=== PATIENT | male | born 1940 | race Hispanic/Latino ===

== ENCOUNTER 2018-04-13 19:33 | Inpatient (IN) | payer OTHER ==
--- OUTSIDE RECORDS SUMMARY | 2018-04-13 19:36 | XMS REPORT ---
:1940 Author Organization [facility] Address [address] [place] [address] Dr. Mata [address] [place] [id number] Care Team Providers Name Role Phone Antolin Chantale Unavailable Unavailable Calderon Mcrae Unavailable Unavailable Wale Diamond Unavailable Unavailable Problems This patient has no known problems. Allergies, Adverse Reactions, Alerts This patient has no known allergies or adverse reactions. Medications This patient has no known medications. Results Test Description Test Time Test Comments Text Results Atomic Results Result Comments Chemistry - BNP, HgbA1c, PTHi 2018-04-02 08:25:00 Test Item Value Reference Range Comments Chemistry - BNP, HgbA1c, PTHi (test code=BNP) 122.7 pg/mL 0-100 [id number] 08:25:00 Test Item Value Reference Range Comments Chemistry (test 0.8 ng/mL 0-6.6 code=CKMBM-T) Chemistry (test Less than 0.010 < 0.028 code=TROPI-T) ng/mL Reference Range 0.00 - 0.028 ng/mL Negative 0.029 - 0.29 ng/mL Indeterminate Greater or Equal to 0.3 ng/mL Strongly suggests MT [id number] 08:23:00 Test Item Value Reference Range Comments Chemistry (test code=NA-T) 133 mmol/L 136-145 Chemistry (test code=K-T) 3.1 mmol/L 3.5-5.1 Chemistry (test code=CL) 94 mmol/L 98-107 Chemistry (test code=CO2) 29 mmol/L 23-31 Chemistry (test code=ANGP) 13 mmol/L 10-20 Chemistry (test code=BUN) 45 mg/dL 8.4-25.7 Chemistry (test code=CREATT) 1.63 mg/dL 0.6-1.3 Chemistry (test 41 Reference Range for Estimated code=EGFRMDRD) GFR: Greater than 90 mL/min/1.73 m2NOTE:The MDRD equation has not been validated for use with theelderly (over 70 years of age), women, patientswith serious comorbid condition or persons with extremes ofbody size, muscle mass, or nutritional status. Chemistry (test code=GLU-T) 121 mg/dL 83-110 Chemistry (test code=CA) 9.5 mg/dL 7.8-10.44 Chemistry (test code=TBILI) 1.4 mg/dL 0.2-1.2 Chemistry (test code=TP) 9.3 g/dL 5.8-8.1 Chemistry (test code=ALB) 3.5 g/dL 3.4-4.8 Chemistry (test code=GLOB) 5.8 g/dL 2.4-3.5 Chemistry (test code=AG) 0.6 g/dL 1.2-2.2 Chemistry (test code=ALP) 114 U/L 40-150 Chemistry (test code=AST) 30 U/L 5-34 Chemistry (test code=ALT) 16 U/L 8-55 [id number] 08:23:00 Test Item Value Reference Range Comments Chemistry (test code=LIP) 42 U/L 8-78 [id number] 08:07:00 Test Item Value Reference Range Comments Coagulation (test 14.7 SEC 12.0-14.7 code=PT-T) Coagulation (test 1.1 ATTENTION: READ code=INR) CAREFULLY -The recommended therapeutic ranges for oral anticoagulanttreatments are: Low Intensity: 1.5 - 2.0 Moderate Intensity: 2.0 - 3.0 High Intensity (1): 2.5 - 3.5 High Intensity (2): 3.0 - 4.0 CRITICAL: > 4.0 Anticoagulant? NONEMedical Necessity SUSPECT COAGULOPATHYAnticoagulant? NONEMedical Necessity: SUSP [id number] 08:07:00 Test Item Value Reference Range Comments Coagulation (test code=PTT) 29.1 SEC 22.9-36.1 Anticoagulant? NONEMedical Necessity SUSPECT COAGULOPATHYAnticoagulant? NONEMedical Necessity: SUSP [id number] 08:01:00 Test Item Value Reference Range Comments Hematology (test code=WBCT) 6.6 thou/uL 4.8-10.8 Hematology (test code=RBCT) 4.22 mill/uL 4.70-6.10 Hematology (test code=HGBT) 13.2 g/dL 14.0-18.0 Hematology (test code=HCTT) 38.3 % 42.0-52.0 Hematology (test code=MCV) 90.8 fl 80.0-94.0 Hematology (test code=MCH) 31.4 pg 27.0-31.0 Hematology (test code=MCHC) 34.5 g/dL 32.0-36.0 Hematology (test code=RDW) 13.1 % 11.5-14.5 Hematology (test code=PLTT) 219 thou/uL 130-400 Hematology (test code=MPV) 7.7 fL 7.4-10.4 Hematology (test code=%NEUT) 59.3 % 42.0-75.0 Hematology (test code=%LYMPH) 21.7 % 21.0-51.0 Hematology (test code=%MONO) 13.2 % 0.0-10.0 Hematology (test code=%EOS) 4.8 % 0.0-10.0 Hematology (test code=%BASO) 1.0 % 0.0-1.0 Hematology (test code=NEUT#) 3.9 thou/uL 1.40-6.50 Hematology (test code=LYMPH#) 1.4 thou/uL 1.20-3.40 Hematology (test code=MONO#) 0.9 thou/uL 0.11-0.59 Hematology (test code=EOS#) 0.3 thou/uL 0.0-0.7 Hematology (test code=BASO#) 0.1 thou/uL 0.0-0.2 Culture, [id number] 09:53:00 Test Item Value Reference Range Comments Culture, Urine (test code=URC) Gram Negative Juan Culture, Urine (test clinically indicated. code=URC1) O:ALPS (test code=ALPS) Alpha-Hemolytic Streptococcus Culture, Urine (test QUANTITATION: code=URC1.1) Culture, Urine (test >100,000 cfu/mL code=URC1.1) O:GNR (test code=GNR) Gram Negative Juan Culture, Urine (test QUANTITATION: code=URC1.2) Culture, Urine (test <5,000 cfu/mL code=URC1.2) [id number] 10:30:00 Test Item Value Reference Range Comments Chemistry (test code=NA-T) 134 mmol/L 136-145 Chemistry (test code=K-T) 3.1 mmol/L 3.5-5.1 Chemistry (test code=CL) 100 mmol/L 98-107 Chemistry (test code=CO2) 25 mmol/L 23-31 Chemistry (test code=ANGP) 12 mmol/L 10-20 Chemistry (test code=BUN) 25 mg/dL 8.4-25.7 Chemistry (test code=CREATT) 1.25 mg/dL 0.6-1.3 Chemistry (test 56 Reference Range for Estimated code=EGFRMDRD) GFR: Greater than 90 mL/min/1.73 m2NOTE:The MDRD equation has not been validated for use with theelderly (over 70 years of age), women, patientswith serious comorbid condition or persons with extremes ofbody size, muscle mass, or nutritional status. Chemistry (test code=GLU-T) 233 mg/dL 83-110 Chemistry (test code=CA) 8.9 mg/dL 7.8-10.44 [id number] 10:30:00 Test Item Value Reference Range Comments Chemistry (test code=MG) 2.2 mg/dL 1.6-2.6 [id number] 10:20:00 Test Item Value Reference Range Comments Hematology (test code=WBCT) 6.2 thou/uL 4.8-10.8 Hematology (test code=RBCT) 4.28 mill/uL 4.70-6.10 Hematology (test code=HGBT) 13.6 g/dL 14.0-18.0 Hematology (test code=HCTT) 39.8 % 42.0-52.0 Hematology (test code=MCV) 93.2 fl 80.0-94.0 Hematology (test code=MCH) 31.9 pg 27.0-31.0 Hematology (test code=MCHC) 34.2 g/dL 32.0-36.0 Hematology (test code=RDW) 13.1 % 11.5-14.5 Hematology (test code=PLTT) 165 thou/uL 130-400 Hematology (test code=MPV) 9.3 fL 7.4-10.4 Hematology (test code=%NEUT) 63.4 % 42.0-75.0 Hematology (test code=%LYMPH) 17.2 % 21.0-51.0 Hematology (test code=%MONO) 10.7 % 0.0-10.0 Hematology (test code=%EOS) 7.8 % 0.0-10.0 Hematology (test code=%BASO) 0.9 % 0.0-1.0 Hematology (test code=NEUT#) 3.9 thou/uL 1.40-6.50 Hematology (test code=LYMPH#) 1.1 thou/uL 1.20-3.40 Hematology (test code=MONO#) 0.7 thou/uL 0.11-0.59 Hematology (test code=EOS#) 0.5 thou/uL 0.0-0.7 Hematology (test code=BASO#) 0.1 thou/uL 0.0-0.2 [id number] 15:43:00 Test Item Value Reference Range Comments Chemistry (test Less than 0.010 < 0.028 code=TROPI-T) ng/mL Reference Range 0.00 - 0.028 ng/mL Negative 0.029 - 0.29 ng/mL Indeterminate Greater or Equal to 0.3 ng/mL Strongly suggests MT [id number] 12:59:00 Test Item Value Reference Range Comments Chemistry (test Less than 0.010 < 0.028 code=TROPI-T) ng/mL Reference Range 0.00 - 0.028 ng/mL Negative 0.029 - 0.29 ng/mL Indeterminate Greater or Equal to 0.3 ng/mL Strongly suggests MT [id number] 10:42:00 Test Item Value Reference Range Comments Urinalysis (test code=UACLR) YELLOW Yellow Urinalysis (test code=UACLY) CLOUDY Clear Urinalysis (test code=SPGR) 1.015 1.002-1.036 Urinalysis (test code=ILIANA) 8.0 5.0-9.0 Urinalysis (test code=UALEU) Moderate Negative Urinalysis (test code=UANIT) Negative Negative Urinalysis (test code=PROUADIP) Negative mg/dL Neg-Trace Urinalysis (test code=GLUCU) Negative mg/dL Negative Urinalysis (test code=KETU) Negative mg/dL Negative Urinalysis (test code=UAUROB) 0.2 mg/dL 0.2-1.0 Urinalysis (test code=UABIL) Negative Negative Urinalysis (test code=UABLD) Negative Negative Urinalysis (test code=UARBC) None Seen HPF 0-3 Urinalysis (test code=UAWBC) Greater Than 50-TNTC HPF 0-3 Urinalysis (test code=UASQUAM) 0-3 HPF 0-3 Urinalysis (test code=UABAC) Rare-Few HPF None Seen Urinalysis (test code=UACAST) 4-6 HYALINE CAST LPF 0-3 Hyaline Urine Source: Urine VoidedChemistry - BNP, HgbA1c, [id number] 09:59:00 Test Item Value Reference Range Comments Chemistry - BNP, HgbA1c, PTHi (test code=BNP) 112.0 pg/mL 0-100 [id number] 09:40:00 Test Item Value Reference Range Comments Chemistry (test 1.0 ng/mL 0-6.6 code=CKMBM-T) Chemistry (test 0.013 ng/mL < 0.028 code=TROPI-T) Reference Range 0.00 - 0.028 ng/mL Negative 0.029 - 0.29 ng/mL Indeterminate Greater or Equal to 0.3 ng/mL Strongly suggests MT [id number] 09:37:00 Test Item Value Reference Range Comments Chemistry (test code=NA-T) 135 mmol/L 136-145 Chemistry (test code=K-T) 3.1 mmol/L 3.5-5.1 Chemistry (test code=CL) 97 mmol/L 98-107 Chemistry (test code=CO2) 29 mmol/L 23-31 Chemistry (test code=ANGP) 12 mmol/L 10-20 Chemistry (test code=BUN) 32 mg/dL 8.4-25.7 Chemistry (test code=CREATT) 1.39 mg/dL 0.6-1.3 Chemistry (test 50 Reference Range for Estimated code=EGFRMDRD) GFR: Greater than 90 mL/min/1.73 m2NOTE:The MDRD equation has not been validated for use with theelderly (over 70 years of age), women, patientswith serious comorbid condition or persons with extremes ofbody size, muscle mass, or nutritional status. Chemistry (test code=GLU-T) 135 mg/dL 83-110 Chemistry (test code=CA) 9.5 mg/dL 7.8-10.44 Chemistry (test code=TBILI) 0.8 mg/dL 0.2-1.2 Chemistry (test code=TP) 9.1 g/dL 5.8-8.1 Chemistry (test code=ALB) 3.3 g/dL 3.4-4.8 Chemistry (test code=GLOB) 5.8 g/dL 2.4-3.5 Chemistry (test code=AG) 0.6 g/dL 1.2-2.2 Chemistry (test code=ALP) 109 U/L 40-150 Chemistry (test code=AST) 27 U/L 5-34 Chemistry (test code=ALT) 15 U/L 8-55 [id number] 09:37:00 Test Item Value Reference Range Comments Chemistry (test code=CK) 60 U/L 30-200 [id number] 09:37:00 Test Item Value Reference Range Comments Chemistry (test code=LIP) 42 U/L 8-78 [id number] 09:33:00 Test Item Value Reference Range Comments Coagulation (test 15.1 SEC 12.0-14.7 code=PT-T) Coagulation (test 1.2 ATTENTION: READ code=INR) CAREFULLY -The recommended therapeutic ranges for oral anticoagulanttreatments are: Low Intensity: 1.5 - 2.0 Moderate Intensity: 2.0 - 3.0 High Intensity (1): 2.5 - 3.5 High Intensity (2): 3.0 - 4.0 CRITICAL: > 4.0 Coagulation (test 29.9 SEC 22.9-36.1 code=PTT) Anticoagulant? NONEMedical Necessity: SUSPECT [id number] 09:21:00 Test Item Value Reference Range Comments Hematology (test code=WBCT) 7.3 thou/uL 4.8-10.8 Hematology (test code=RBCT) 4.41 mill/uL 4.70-6.10 Hematology (test code=HGBT) 13.6 g/dL 14.0-18.0 Hematology (test code=HCTT) 41.2 % 42.0-52.0 Hematology (test code=MCV) 93.2 fl 80.0-94.0 Hematology (test code=MCH) 30.9 pg 27.0-31.0 Hematology (test code=MCHC) 33.1 g/dL 32.0-36.0 Hematology (test code=RDW) 12.7 % 11.5-14.5 Hematology (test code=PLTT) 186 thou/uL 130-400 Hematology (test code=MPV) 8.3 fL 7.4-10.4 Hematology (test code=%NEUT) 64.9 % 42.0-75.0 Hematology (test code=%LYMPH) 19.1 % 21.0-51.0 Hematology (test code=%MONO) 10.8 % 0.0-10.0 Hematology (test code=%EOS) 4.6 % 0.0-10.0 Hematology (test code=%BASO) 0.6 % 0.0-1.0 Hematology (test code=NEUT#) 4.7 thou/uL 1.40-6.50 Hematology (test code=LYMPH#) 1.4 thou/uL 1.20-3.40 Hematology (test code=MONO#) 0.8 thou/uL 0.11-0.59 Hematology (test code=EOS#) 0.3 thou/uL 0.0-0.7 Hematology (test code=BASO#) 0.0 thou/uL 0.0-0.2
[2018-04-13] MEDS ORDERED: NA CHLORIDE 0.9% 1,000 ML ONE ×2 (20:01→20:20)
[2018-04-13] MEDS ORDERED: PANTOPRAZOLE 40 MG INJ ONE (20:01)
[2018-04-13 20:19] LABS: Absolute Lymphocytes (CBC) 1.3 K/uL (0.7-4.9); Absolute Monocytes 1.2 K/uL (0.1-1.3); Absolute Neutrophil 7.8 K/uL (1.8-8.0); Basophils % 0.4 % (0-1.3); Eosinophils % 2.1 % (0-4.4); Hematocrit 42.1 % (39.6-49.0); Lymphocytes % 12.3 % (15.3-44.8); MCH 30.7 pg (27.0-35.0); MPV 9.2 fL (7.6-11.3); Monocytes % 11.1 % (3.3-12.3); RBC Red Blood Cell Count 4.79 M/uL (4.33-5.43)
[2018-04-13] MEDS ORDERED: LACTULOSE 20 GM/30 ML UCUP ONE (20:19)
[2018-04-13 20:24] LABS: Protime INR 1.08
--- NOTE | 2018-04-13 20:32 | RAD REPORT ---
EXAM DESCRIPTION: CT - Head Brain Wo Cont - 04/13/2018 8:08 pm CLINICAL HISTORY: Transient alteration of awareness COMPARISON: None. TECHNIQUE: Axial 5 mm thick images of the head were obtained without IV contrast. All CT scans are performed using dose optimization technique as appropriate and may include automated exposure control or mA/KV adjustment according to patient size. FINDINGS: No intracranial hemorrhage, mass, edema or shift of mid-line structures. No acute cortical based infarction. Moderate atrophy and mild to moderate chronic ischemic changes are present. Ventri cular size is in proportion. Arterial and physiologic calcifications are present. No abnormal extra-a xial fluid collections. Vertebrobasilar tortuosity is present without dilatation. Mastoid air cells and visualized portions of the paranasal sinuses are clear. No acute bony findings. IMPRESSION: No hemorrhage, mass or acute cortical based infarction. Atrophy and chronic ischemic changes are present mild to moderate in degree.
--- NOTE | 2018-04-13 20:50 | ER ---
Nurse's Notes [facility] Name: Cristian Jaramillo Age: 77 yrs Sex: Male : 1940 Arrival Date: 04/13/2018 Time: 19:40 Bed 5 Private MD: Diagnosis: Altered mental status, unspecified;Unspecified cirrhosis of liver;Alcoholic cirrhosis of liver;Weakness;Hypokalemia;Encephalopathy, unspecified;Unspecified kidney failure;Rhabdomyolysis Presentation: 04/13 19:40 Presenting complaint: EMS states: Per family, patient has not moved very much since lp1 last night; Found this evening laying in own urine, not responding appropriately to questions; family states hx of cirrhosis, diagnosed with pneumonia a few days ago. Transition of care: patient was not received from another setting of care. Onset of symptoms was April 13, 2018 at 18:30. Risk Assessment: Do you want to hurt yourself or someone else? Patient reports no desire to harm self or others. Initial Sepsis Screen: Does the patient meet any 2 criteria? No. Patient's initial sepsis screen is negative. Does the patient have a suspected source of infection? Yes: Productive cough/pneumonia. Care prior to arrival: Medication(s) given: Normal saline infusion, \T\ KVO IV initiated. 20 GA, in the right antecubital area, 22g Left hand Oxygen administered. via nasal cannula. 19:40 Method Of Arrival: EMS: [facility] 1 19:40 Acuity: CORI 2 lp1 Historical: - Allergies: 19:45 No Known Allergies; lp1 - Home Meds: 21:07 propranolol 120 mg Oral Cs24 1 cap once daily [Active]; furosemide 40 mg Oral tab 1.5 lp1 tabs 2 times per day [Active]; amiloride-hydrochlorothiazide 5-50 mg oral tab [Active]; potassium chloride 20 mEq Oral TbER [Active]; lactulose 10 gram/15 mL (15 mL) Oral soln 15 mL twice a day [Active]; pantoprazole 40 mg oral TbEC 1 tab 2 times per day [Active]; amlodipine 5 mg tab 1 tab once daily [Active]; - PMHx: 19:45 Cirrhosis; Alcoholism; COPD; Enlarged prostate; lp1 - PSHx: 19:45 TURP; lp1 - Immunization history:: Adult Immunizations up to date. - Social history:: Smoking status: Patient/guardian denies using tobacco, the patient reports quitting approximately 20 years ago. - Ebola Screening: : No symptoms or risks identified at this time. - Family history:: not pertinent. Screenin:46 Abuse screen: Denies threats or abuse. Denies injuries from another. Nutritional lp1 screening: No deficits noted. Tuberculosis screening: No symptoms or risk factors identified. Fall Risk Total Diaz Fall Scale indicates High Risk Score (45 or more points). Fall prevention measures have been instituted. Side Rails Up X 2 Frequent Obs/Assessments Occuring Family Present and informed to notify staff if the need to leave the bedside As available patient and family educated on Fall Prevention Program and Strategies. Assessment: 20:08 General: Appears uncomfortable, Behavior is calm, cooperative. Pain: Denies pain. mg2 Unable to use pain scale. Patient is disoriented. Neuro: Level of Consciousness is awake, confused, lethargic, Oriented to none Weakness generalized. Speech is normal. Cardiovascular: Capillary refill < 3 seconds Patient's skin is warm and dry. Respiratory: Airway is patent Respiratory effort is even, unlabored. GI: No signs and/or symptoms were reported involving the gastrointestinal system. : urinary incontinence, distended abdomen. EENT: No signs and/or symptoms were reported regarding the EENT system. Derm: Skin is intact, Skin is pink, warm \T\ dry. normal. Musculoskeletal: Circulation, motion, and sensation intact. 21:00 Reassessment: Patient and/or family updated on plan of care and expected duration. Pain mg2 level reassessed. patient not in distress, still awaiting for lab results. 22:06 Reassessment: Nurse Sullivan will call me to receive the report. mg2 Vital Signs: 19:43 BP 167 / 53; Pulse 64; Resp 15; Temp 97.8(A); Pulse Ox 100% on 1 lpm NC; Weight 62.6 kg;lp1 21:00 BP 150 / 60; Pulse 78; Resp 18; Temp 97.9(O); Pulse Ox 100% on 1 lpm NC; Pain 0/10; mg2 21:58 BP 146 / 88; Pulse 78; Resp 18; Pulse Ox 100% on 2 lpm NC; Pain 0/10; mg2 ED Course: 19:40 Patient arrived in ED. lp1 19:41 Bry Luna MD is Attending Physician. [facility] 19:43 Triage completed. lp1 19:43 Arm band placed on right wrist. lp1 19:46 Patient has correct armband on for positive identification. Placed in gown. Bed in low lp1 position. Call light in reach. Side rails up X2. conveyor monitor on. Pulse ox on. NIBP on. 20:[address] nj 20:06 Jose Angel Cano, EMMA is Primary Nurse. mg2 20:06 CT completed. Patient moved back from CT. nj 20:08 Patient moved to radiology. nj 20:09 CT Head Brain wo Cont In Process Unspecified. EDMS 20:10 Maintain EMS IV. Dressing intact. Site clean \T\ dry. Gauge \T\ site: gauge 20 right AC mg 2 andf gauge 22 left hand. 20:11 X-ray completed. Portable x-ray completed in exam room. Patient tolerated procedure ml well. 20:12 XRAY Chest (1 view) In Process Unspecified. EDMS 20:47 Lasha Pichardo MD is Hospitalizing Provider. [facility] 21:00 Urine collected: Collazo catheter specimen, clear. mg2 21:07 No provider procedures requiring assistance completed. Patient admitted, IV remains in lp1 place. 21:48 Inserted saline lock: 20 gauge in left forearm, using aseptic technique. Blood mg2 collected. 04/14 03:30 Bladder scan completed. 476 ml. mg2 Administered Medications: 04/13 20:36 Drug: NS 0.9% 1000 ml Route: IV; Rate: 125 ml/hr; Site: right antecubital; mg2 04/14 03:23 Follow up: Response: No adverse reaction; IV Status: Infusion continued upon admission mg2 04/13 20:36 Drug: ProTONIX 40 mg Route: IVP; Site: right antecubital; mg2 04/14 03:20 Follow up: Response: No adverse reaction; Pain is decreased mg2 04/13 20:49 Drug: Lactulose 30 grams Volume: 45 ml; Route: PO; mg2 21:30 Follow up: Response: No adverse reaction; Other; no bowel movement noted in ed. mg2 21:14 Drug: NS 0.9% 500 ml Route: IV; Rate: bolus; Site: right antecubital; mg2 21:30 Follow up: Response: No adverse reaction; IV Status: Completed infusion mg2 21:35 Drug: NS 0.9% 1000 ml Route: IV; Rate: 125 ml/hr; Site: right antecubital; mg2 21:35 Drug: Potassium Chloride 20 mEq Route: IV; Rate: per protocol; Site: right antecubital; mg2 22:30 Follow up: Response: No adverse reaction; IV Status: Infusion continued upon admission mg2 21:36 Drug: Zosyn 3.375 grams Route: IVPB; Infused Over: 60 mins; Site: right antecubital; mg2 21:36 Drug: Thiamine 100 mg Route: IV; Rate: bolus; Site: right antecubital; mg2 22:00 Follow up: Response: No adverse reaction; IV Status: Completed infusion mg2 22:29 Drug: Zithromax 500 mg Route: IVPB; Infused Over: 1 hrs; Site: left forearm; mg2 04/14 03:22 Follow up: Response: No adverse reaction; IV Status: Infusion continued upon admission mg2 Point of Care Testing: Blood Glucose: 04/13 20:14 Blood Glucose: 126 mg/dL; mg2 Ranges: Intake: Outcome: 20:50 Decision to Hospitalize by Provider. tres 21:07 Instructed on the need for admit, to family lp1 22:29 Admitted to Tele accompanied by tech, room 404, with oxygen, with chart, Report called mg2 to NUrse Karen 22:29 Condition: stable 22:30 Patient left the ED. mg2 Signatures: Dispatcher [employer] Bry Sims MD MD cha Lopez, Melissa ml Pena, Laura, EMMA RN lp1 Alvarado Mandujano Michele, RN RN mg2 Corrections: (The following items were deleted from the chart) 21:07 19:45 Home Meds: Unable to obtain; lp1 lp1 04/14 03:24 04/13 20:08 Neuro: Level of Consciousness is awake, alert, obeys commands, Oriented to mg2 person, place, time, situation, mg2 04/14 03:30 04/13 20:08 Pain: Denies pain. mg2 mg2 04/14 03:30 04/13 20:08 Neuro: Level of Consciousness is awake, alert, obeys commands, Oriented to mg2 person, place, time, situation, mg2 04/14 03:31 04/13 20:08 : urinary incontinence mg2 mg2
--- NOTE | 2018-04-13 20:50 | EDPHYS ---
Physician Documentation [facility] Name: Cristian Jaramillo Age: 77 yrs Sex: Male : 1940 Arrival Date: 04/13/2018 Time: 19:40 Bed 5 Private MD: ED Physician Bry Luna HPI: 04/13 19:54 This 77 yrs old Male presents to ER via EMS with complaints of Altered Mental tres Status. 19:54 The patient presents with confusion, decreased mental status. Onset: The tres symptoms/episode began/occurred 3 day(s) ago. Possible causes: unknown. Associated signs and symptoms: The patient has no apparent associated signs or symptoms. Current symptoms: In the emergency department the patient's symptoms are unchanged from the initial presentation. Patient's baseline: Neuro: alert and fully oriented. The patient has experienced similar episodes in the past, several times. Historical: - Allergies: 19:45 No Known Allergies; lp1 - Home Meds: 21:07 propranolol 120 mg Oral Cs24 1 cap once daily [Active]; furosemide 40 mg Oral tab 1.5 lp1 tabs 2 times per day [Active]; amiloride-hydrochlorothiazide 5-50 mg oral tab [Active]; potassium chloride 20 mEq Oral TbER [Active]; lactulose 10 gram/15 mL (15 mL) Oral soln 15 mL twice a day [Active]; pantoprazole 40 mg oral TbEC 1 tab 2 times per day [Active]; amlodipine 5 mg tab 1 tab once daily [Active]; - PMHx: 19:45 Cirrhosis; Alcoholism; COPD; Enlarged prostate; lp1 - PSHx: 19:45 TURP; lp1 - Immunization history:: Adult Immunizations up to date. - Social history:: Smoking status: Patient/guardian denies using tobacco, the patient reports quitting approximately 20 years ago. - Ebola Screening: : No symptoms or risks identified at this time. - Family history:: not pertinent. ROS: 19:54 Constitutional: Negative for fever, chills, and weight loss, Eyes: Negative for injury, tres pain, redness, and discharge, ENT: Negative for injury, pain, and discharge, Neck: Negative for injury, pain, and swelling, Cardiovascular: Negative for chest pain, palpitations, and edema, Respiratory: Negative for shortness of breath, cough, wheezing, and pleuritic chest pain, Abdomen/GI: Negative for abdominal pain, nausea, vomiting, diarrhea, and constipation, Back: Negative for injury and pain, : Negative for injury, bleeding, discharge, and swelling, MS/Extremity: Negative for injury and deformity, Skin: Negative for injury, rash, and discoloration, Psych: Negative for depression, anxiety, suicide ideation, homicidal ideation, and hallucinations, Allergy/Immunology: Negative for hives, rash, and allergies, Endocrine: Negative for neck swelling, polydipsia, polyuria, polyphagia, and marked weight changes, Hematologic/Lymphatic: Negative for swollen nodes, abnormal bleeding, and unusual bruising. 19:54 Neuro: Positive for altered mental status, weakness. Exam: 19:54 Constitutional: This is a well developed, well nourished patient who is awake, alert, tres and in no acute distress. Head/Face: Normocephalic, atraumatic. Eyes: Pupils equal round and reactive to light, extra-ocular motions intact. Lids and lashes normal. Conjunctiva and sclera are non-icteric and not injected. Cornea within normal limits. Periorbital areas with no swelling, redness, or edema. ENT: Nares patent. No nasal discharge, no septal abnormalities noted. Tympanic membranes are normal and external auditory canals are clear. Oropharynx with no redness, swelling, or masses, exudates, or evidence of obstruction, uvula midline. Mucous membranes moist. Neck: Trachea midline, no thyromegaly or masses palpated, and no cervical lymphadenopathy. Supple, full range of motion without nuchal rigidity, or vertebral point tenderness. No Meningismus. Chest/axilla: Normal chest wall appearance and motion. Nontender with no deformity. No lesions are appreciated. Cardiovascular: Regular rate and rhythm with a normal S1 and S2. No gallops, murmurs, or rubs. Normal PMI, no JVD. No pulse deficits. Respiratory: Lungs have equal breath sounds bilaterally, clear to auscultation and percussion. No rales, rhonchi or wheezes noted. No increased work of breathing, no retractions or nasal flaring. Abdomen/GI: Soft, non-tender, with normal bowel sounds. No distension or tympany. No guarding or rebound. No evidence of tenderness throughout. Back: No spinal tenderness. No costovertebral tenderness. Full range of motion. Male : Normal genitalia with no discharge or lesions. Skin: Warm, dry with normal turgor. Normal color with no rashes, no lesions, and no evidence of cellulitis. MS/ Extremity: Pulses equal, no cyanosis. Neurovascular intact. Full, normal range of motion. Psych: Awake, alert, with orientation to person, place and time. Behavior, mood, and affect are within normal limits. 19:54 Neuro: Orientation: Not oriented to person, place, time, situation, Mentation: slow to respond, confused, Memory: unable to test, Cranial nerves: Cerebellar function: Motor: Sensation: Deep tendon reflexes are 2+ (normal) in the bilateral brachioradialis, bicep, tricep and patellar and Achilles tendons, seizure activity, is not displayed by the patient. Vital Signs: 19:43 BP 167 / 53; Pulse 64; Resp 15; Temp 97.8(A); Pulse Ox 100% on 1 lpm NC; Weight 62.6 kg;lp1 21:00 BP 150 / 60; Pulse 78; Resp 18; Temp 97.9(O); Pulse Ox 100% on 1 lpm NC; Pain 0/10; mg2 21:58 BP 146 / 88; Pulse 78; Resp 18; Pulse Ox 100% on 2 lpm NC; Pain 0/10; mg2 MDM: 19:41 Patient medically screened. [facility] 20:00 Data reviewed: vital signs, nurses notes, lab test result(s), EKG, radiologic studies, [facility] CT scan, plain films. 04/13 19:50 Order name: Basic Metabolic Panel; Complete Time: 21:55 [facility] 04/13 19:50 Order name: CBC with Diff; Complete Time: 20:44 [facility] 04/13 19:50 Order name: Ckmb; Complete Time: 21:55 [facility] 04/13 19:50 Order name: CPK; Complete Time: 21:55 [facility] 04/13 19:50 Order name: LFT's; Complete Time: 21:55 [facility] 04/13 19:50 Order name: Magnesium; Complete Time: 21:55 [facility] 04/13 19:50 Order name: PT-INR; Complete Time: 20:44 [facility] 04/13 19:50 Order name: Ptt, Activated; Complete Time: 20:44 [facility] 04/13 19:50 Order name: Troponin (emerg Dept Use Only); Complete Time: 20:44 [facility] 04/13 19:50 Order name: Lipase; Complete Time: 21:55 [facility] 04/13 19:50 Order name: Blood Culture Adult (2) [facility] 04/13 19:50 Order name: AMMONIA; Complete Time: 20:44 [facility] 04/13 19:50 Order name: Urine Culture [facility] 04/13 19:50 Order name: ABG; Complete Time: 21:55 [facility] 04/13 19:52 Order name: Amylase, Serum; Complete Time: 21:55 [facility] 04/13 19:52 Order name: Basic Metabolic Panel [facility] 04/13 19:52 Order name: Blood Culture Adult (2) [facility] 04/13 19:52 Order name: C-Reactive Protein [facility] 04/13 19:52 Order name: CBC with Diff [facility] 04/13 19:52 Order name: Ckmb [facility] 04/13 19:52 Order name: CPK [facility] 04/13 19:52 Order name: Lactate; Complete Time: 21:55 [facility] 04/13 19:52 Order name: LFT's [facility] 04/13 19:52 Order name: Lipase [facility] 04/13 19:52 Order name: Procalcitonin [facility] 04/13 19:52 Order name: Protime (+inr) [facility] 04/13 19:52 Order name: Ptt, Activated [facility] 04/13 19:52 Order name: Sed Rate [facility] 04/13 19:52 Order name: Troponin (emerg Dept Use Only) [facility] 04/13 19:52 Order name: AMMONIA [facility] 04/13 19:50 Order name: XRAY Chest (1 view); Complete Time: 21:55 [facility] 04/13 19:50 Order name: EKG; Complete Time: 19:51 [facility] 04/13 19:50 Order name: Cardiac monitoring; Complete Time: 20:01 [facility] 04/13 19:50 Order name: EKG - Nurse/Tech; Complete Time: 20:01 [facility] 04/13 19:50 Order name: CT Head Brain wo Cont; Complete Time: 20:44 [facility] 04/13 21:04 Order name: CONS Physician Consult EDRI 04/13 21:04 Order name: CONS Physician Consult EDMS 04/13 21:04 Order name: Consistent Carb (ADA) 1800 Kg EDMS 04/13 21:04 Order name: EKG Electrocardiogram EDMS 04/13 21:04 Order name: EKG Electrocardiogram EDMS 04/13 21:04 Order name: EKG Electrocardiogram EDMS 04/13 21:04 Order name: EKG Electrocardiogram EDMS 04/13 21:04 Order name: Basic Metabolic Panel EDMS 04/13 21:04 Order name: Basic Metabolic Panel EDMS 04/13 21:04 Order name: CBC with Automated Diff EDMS 04/13 21:04 Order name: CBC with Automated Diff EDMS 04/13 21:04 Order name: Troponin I EDMS 04/13 21:04 Order name: Troponin I EDMS 04/13 21:04 Order name: Troponin I EDMS 04/13 21:05 Order name: Phosphorus; Complete Time: 21:55 [facility] 04/13 21:18 Order name: Urine Dipstick--Ancillary (enter results) 04/13 22:11 Order name: Urine Dipstick-Ancillary [facility] 04/13 19:50 Order name: IV Saline Lock; Complete Time: 20:01 [facility] 04/13 19:50 Order name: Labs collected and sent; Complete Time: 20:02 [facility] 04/13 19:50 Order name: O2 Per Protocol; Complete Time: 20:02 [facility] 04/13 19:50 Order name: O2 Sat Monitoring; Complete Time: 20:02 [facility] 04/13 19:50 Order name: Urine Dipstick-Ancillary (obtain specimen); Complete Time: 20:02 [facility] 04/13 19:50 Order name: Bladder Scanner; Complete Time: 21:16 [facility] 04/13 19:52 Order name: Accucheck; Complete Time: 20:06 lp1 04/13 20:45 Order name: Blood Glucose Level; Complete Time: 20:50 [facility] 04/13 21:07 Order name: EKG - Nurse/Tech; Complete Time: 21:20 eb Administered Medications: 20:36 Drug: NS 0.9% 1000 ml Route: IV; Rate: 125 ml/hr; Site: right antecubital; mg2 04/14 03:23 Follow up: Response: No adverse reaction; IV Status: Infusion continued upon admission mg2 04/13 20:36 Drug: ProTONIX 40 mg Route: IVP; Site: right antecubital; mg2 04/14 03:20 Follow up: Response: No adverse reaction; Pain is decreased mg2 06/20 20:49 Drug: Lactulose 30 grams Volume: 45 ml; Route: PO; mg2 21:30 Follow up: Response: No adverse reaction; Other; no bowel movement noted in ed. mg2 21:14 Drug: NS 0.9% 500 ml Route: IV; Rate: bolus; Site: right antecubital; mg2 21:30 Follow up: Response: No adverse reaction; IV Status: Completed infusion mg2 21:35 Drug: NS 0.9% 1000 ml Route: IV; Rate: 125 ml/hr; Site: right antecubital; mg2 21:35 Drug: Potassium Chloride 20 mEq Route: IV; Rate: per protocol; Site: right antecubital; mg2 22:30 Follow up: Response: No adverse reaction; IV Status: Infusion continued upon admission mg2 21:36 Drug: Zosyn 3.375 grams Route: IVPB; Infused Over: 60 mins; Site: right antecubital; mg2 21:36 Drug: Thiamine 100 mg Route: IV; Rate: bolus; Site: right antecubital; mg2 22:00 Follow up: Response: No adverse reaction; IV Status: Completed infusion mg2 22:29 Drug: Zithromax 500 mg Route: IVPB; Infused Over: 1 hrs; Site: left forearm; mg2 04/14 03:22 Follow up: Response: No adverse reaction; IV Status: Infusion continued upon admission mg2 Point of Care Testing: Blood Glucose: 04/13 20:14 Blood Glucose: 126 mg/dL; mg2 Ranges: Critical Glucose Levels:Adult <50 mg/dl or >400 mg/dl <40 mg/dl or >180 mg/dl Disposition: 04/13/18 20:50 Hospitalization ordered by Lasha Pichardo for Inpatient Admission. Preliminary diagnosis are Altered mental status, unspecified, Unspecified cirrhosis of liver, Alcoholic cirrhosis of liver, Weakness, Hypokalemia, Encephalopathy, unspecified, Unspecified kidney failure, Rhabdomyolysis. - Bed requested for Telemetry/MedSurg (Inpatient). - Status is Inpatient Admission. mg2 - Condition is Fair. - Problem is new. - Symptoms have improved. UTI on Admission? No Signatures: Dispatcher [employer] EDMS Marisol Marc RN RN mw Anderson, Corey, MD MD cha Pena, Laura, RN RN lp1 Tanya Castrejon Michele, RN RN mg2 Corrections: (The following items were deleted from the chart) 19:53 19:52 Urine Dipstick-Ancillary ordered. lp1 lp1 19:54 19:52 Labs collected and sent ordered. lp1 lp1 19:54 19:52 Oxygen Per Protocol ordered. lp1 lp1 19:54 19:52 O2 Sat Monitoring ordered. lp1 lp1 19:55 19:52 Cardiac monitoring ordered. lp1 lp1 19:55 19:52 EKG - Nurse/Tech ordered. lp1 lp1 19:55 19:52 IV Saline Lock - Large Bore ordered. lp1 lp1 19:55 19:53 Chest Single View+RAD.RAD.BRZ ordered. EDRI EDMS 21:00 20:50 Hospitalization Ordered by Lasha Pichardo MD for Inpatient Admission. Preliminary diagnosis is Altered mental status, unspecified; Unspecified cirrhosis of liver; Alcoholic cirrhosis of liver; Weakness. Bed requested for Telemetry/MedSurg (Inpatient). Status is Inpatient Admission. Condition is Fair. Problem is new. Symptoms have improved. UTI on Admission? No. tres 21:04 21:00 04/13/2018 20:50 Hospitalization Ordered by Lasha Pichardo MD for Inpatient tres Admission. Preliminary diagnosis is Altered mental status, unspecified; Unspecified cirrhosis of liver; Alcoholic cirrhosis of liver; Weakness. Bed requested for Telemetry/MedSurg (Inpatient). Status is Inpatient Admission. Condition is Fair. Problem is new. Symptoms have improved. UTI on Admission? No. mw 21:05 21:04 04/13/2018 20:50 Hospitalization Ordered by Lasha Pichardo MD for Inpatient tres Admission. Preliminary diagnosis is Altered mental status, unspecified; Unspecified cirrhosis of liver; Alcoholic cirrhosis of liver; Weakness; Hypokalemia; Encephalopathy, unspecified; Unspecified kidney failure. Bed requested for Telemetry/MedSurg (Inpatient). Status is Inpatient Admission. Condition is Fair. Problem is new. Symptoms have improved. UTI on Admission? No. tres 21:07 19:45 Home Meds: Unable to obtain; lp1 lp1 22:30 21:05 04/13/2018 20:50 Hospitalization Ordered by Lasha Pichardo MD for Inpatient mg2 Admission. Preliminary diagnosis is Altered mental status, unspecified; Unspecified cirrhosis of liver; Alcoholic cirrhosis of liver; Weakness; Hypokalemia; Encephalopathy, unspecified; Unspecified kidney failure; Rhabdomyolysis. Bed requested for Telemetry/MedSurg (Inpatient). Status is Inpatient Admission. Condition is Fair. Problem is new. Symptoms have improved. UTI on Admission? No. tres
[2018-04-13 20:51] LABS: Albumin 3.3 g/dL (3.4-5.0); Bilirubin Direct 0.3 mg/dL (0-0.2); Bilirubin Total 1.4 mg/dL (0.2-1.0); Magnesium 3.1 mg/dL (1.8-2.4); Potassium 3.3 mmol/L (3.5-5.1); Protein, Total 10.1 g/dL (6.4-8.2)
[2018-04-13] MEDS ORDERED: ACETAMINOPHEN 500 MG TAB PO PRN (20:54)
[2018-04-13] MEDS ORDERED: ONDANSETRON 4 MG/2 ML VIAL IV PRN (20:54)
[2018-04-13 20:56] LABS: CKMB Creatine Kinase MB 14.8 ng/mL (0.3-3.6)
[2018-04-13] MEDS ORDERED: SODIUM CHLORIDE 0.9% 10ML INJ IV PRN (20:57)
[2018-04-13] MEDS ORDERED: PIPER/TAZO/NS 3.375gm 3.375 GM/100 ML BAG ONE ×2 (20:58→22:21)
[2018-04-13] MEDS ORDERED: AZITHROMYCIN 500 MG/250 ML BAG ONE (20:58)
[2018-04-13] MEDS: LACTULOSE 20 GM/30 ML UCUP PO SCH (21:00)
[2018-04-13] MEDS: NA CHLORIDE 0.9% 1,000 ML IV SCH (21:00)
[2018-04-13 21:04] LABS: Arterial Blood Carboxyhemoglob 1.3 % (0-1.5); Blood O2 Saturation 98.4 % (92-98.5)
--- NOTE | 2018-04-13 21:09 | RAD REPORT ---
EXAM DESCRIPTION: RAD - Chest Single View - 04/13/2018 8:13 pm CLINICAL HISTORY: Transient alteration of awareness, COPD, cirrhosis, abdominal pain COMPARISON: April 11 TECHNIQUE: AP portable chest image was obtained 2002 hours . FINDINGS: Underlying fibrotic an obstructive lung changes are present. Hazy right base opacification seen April 11 is not present on the current examination. No new or progressive lung parenchymal proce ss over this short interval. Heart and vasculature are normal. No measurable pleural effusion and no pneumothorax. No gross bony abnormality seen. No acute aortic findings suspected. IMPRESSION: Underlying fibrotic an obstructive lung changes. No acute process seen. Hazy right base opacification seen April 11 is no longer identifiable.
[2018-04-13] MEDS ORDERED: THIAMINE 200 MG/2 ML INJ ONE (21:14)
[2018-04-13] MEDS ORDERED: KCL 20 MEQ/100 mL IVPB 20 MEQ/100 ML BAG IV ONE (21:20)
[2018-04-13 22:11] LABS: Urine Blood TRACE (NEG); Urine Glucose NEGATIVE (NEG); Urine Protein NEGATIVE (NEG); Urine Specific Gravity 1.015 (1.005-1.030); Urine pH 7.5 (5.0-7.0)
[2018-04-14] MEDS: LACTULOSE 20 GM/30 ML UCUP PO SCH ×6 (00:35→22:05)
[2018-04-14] MEDS: NA CHLORIDE 0.9% 1,000 ML IV SCH ×2 (00:35→19:22)
[2018-04-14] MEDS: ALBUTEROL 2.5 MG/3 ML NEB SOL NEB SCH ×4 (01:14→19:39)
[2018-04-14] MEDS: IPRATROPIUM BROM 0.5MG/2.5ML NEB SCH ×4 (01:14→19:39)
[2018-04-14 05:18] LABS: Absolute Lymphocytes (CBC) 0.9 K/uL (0.7-4.9); Absolute Monocytes 1.1 K/uL (0.1-1.3); Absolute Neutrophil 6.3 K/uL (1.8-8.0); Basophils % 0.5 % (0-1.3); Eosinophils % 0.5 % (0-4.4); Hematocrit 34.9 % (39.6-49.0); Lymphocytes % 10.2 % (15.3-44.8); MCH 31.2 pg (27.0-35.0); MCV 88.4 fL (80-100); MPV 9.2 fL (7.6-11.3); Monocytes % 12.9 % (3.3-12.3); RBC Red Blood Cell Count 3.95 M/uL (4.33-5.43)
[2018-04-14 05:48] LABS: Albumin 2.5 g/dL (3.4-5.0); Bilirubin Total 1.5 mg/dL (0.2-1.0)
--- NOTE | 2018-04-14 06:36 | EKG ---
Test Date: 2018-04-13 Test Time: 21:13:48 Animal Care Worker: MEASUREMENT RESULTS: Intervals: Rate: 71 SC: 202 QRSD: 84 QT: 440 QTc: 478 [place]: P: 53 SC: 202 QRS: 64 T: 45 INTERPRETIVE STATEMENTS: Normal sinus rhythm Normal ECG Compared to ECG 04/13/2018 19:41:48 Prolonged QT interval no longer present Electronically Signed On 04-14-18 06:36:10 CDT by Srinivas Eric
--- NOTE | 2018-04-14 06:37 | EKG ---
Test Date: 2018-04-13 Test Time: 19:41:48 [employer] Processing Labourer: MEASUREMENT RESULTS: Intervals: Rate: 66 CT: 188 QRSD: 88 QT: 468 QTc: 490 [place]: P: 85 CT: 188 QRS: 54 T: 39 INTERPRETIVE STATEMENTS: Normal sinus rhythm Prolonged QT Abnormal ECG No previous ECG available for comparison Electronically Signed On 04-14-18 06:37:05 CDT by Srinivas Eric
--- NOTE | 2018-04-14 06:40 | HP ---
Date of Admission: 04/14/2018 DICTATION ENDS HERE. PATRICIA/MODL Voice ID: [id number] MTDD
--- NOTE | 2018-04-14 08:47 | RAD REPORT ---
EXAM DESCRIPTION: RAD - Chest Single View - 04/14/2018 6:51 am CLINICAL HISTORY: Chest Pain Chest pain. COMPARISON: Chest Single View dated 04/13/2018; Chest Pa And Lat (2 Views) dated 04/11/2018 FINDINGS: Portable technique limits examination quality. The lungs are emphysematous but grossly clear. The heart is normal in size. No displaced fractures.Ao rtic atherosclerosis. IMPRESSION: No acute intrathoracic process suspected. Moderate COPD.
[2018-04-14] MEDS: PROPRANOLOL HCL 10 MG TAB PO SCH ×2 (09:41→22:06)
[2018-04-14] MEDS: PANTOPRAZOLE 40 MG INJ IVP SCH (09:41)
[2018-04-14] MEDS: PIPER/TAZO/NS 3.375gm 3.375 GM/100 ML BAG IVPB SCH ×2 (09:43→17:43)
[2018-04-14] MEDS: ASPIRIN EC 81 MG TAB PO SCH (09:43)
--- NOTE | 2018-04-14 09:48 | RAD REPORT ---
EXAM DESCRIPTION: US - Abdomen Exam Complete - 04/14/2018 9:22 am CLINICAL HISTORY: Abdominal pain. RUQ pain COMPARISON: No comparisons FINDINGS: Heterogenous liver echotexture noted. No significant biliary tree dilatation suspected. No focal liver mass. Multiple gallstones are present. The gallbladder wall is upper limit of normal measuring 3 mm. Commo n bile duct is normal in caliber measuring 3 mm. Both kidneys are normal in size, shape and echotexture. No hydronephrosis, focal lesion of concern or perinephric fluid. The spleen is normal in size measuring 9 cm. The pancreas and aorta are obscured by bowel gas. The visualized aspects of the IVC are grossly normal. IMPRESSION: Extensive cholelithiasis with upper limit of normal gallbladder wall. If acute cholecyst itis is a clinical concern, consider HIDA scan followup assessment. Heterogenous liver echotexture probably indicates underlying cirrhosis.
[2018-04-14] MEDS ORDERED: AMLODIPINE 5 MG TAB PO ONE (11:28)
--- NOTE | 2018-04-14 15:49 | CON ---
Date of Consultation: 04/14/2018 Reason For Consultation: Gallstones, abdominal pain, cirrhosis, and hepatic encephalopathy. History Of Present Illness: The patient is a 77-year-old gentleman, who recently moved from [facility] to live with his son and [id number] locally. He saw Dr. Pichardo last Wednesday and was being worked as a new patient and blood work was drawn, and his ammonia level was checked and it was 72 and he had a chest x-ray, which was suspicious for pneumonia and he was started on oral Levaquin a nd his Lasix was reduced and his levothyroxine was increased, and he had not taken any of these medic ations, but yesterday he was noted to be obtunded. Family brought him to the emergency room and he w as admitted with altered mental status. The ammonia level on admission was 70, so it is unclear why his mental status was altered; however, given pneumonia may have complicated his symptoms. Currently , he is awake, alert, oriented. He is tolerating his clear liquids. Denies any significant abdomina l pain. He had some nausea and vomiting early this morning, but feels better. No bloating, belching , or heartburn. No blood in his stool. No dysuria or hematuria. No sore throat, runny nose, cough, headaches, or dizziness. No chest pain. No fever or chills. Review of Systems: Otherwise unremarkable. Past Medical History: Significant for cirrhosis of the liver, history of upper GI bleed, hypokalemia , hypertension, COPD, impaired fasting glucose, anemia, fatigue. Past Surgical History: Hernia surgery, appendectomy, and TURP. Social History: Significant for smoking, but he quit in 1998 and he quit alcohol in 2001. Family History: Significant for Crohn disease, cervical cancer, and cardiovascular disease. Physical Examination: Vital Signs: Stable. He is currently afebrile. General: He is awake, alert, oriented. Head and Neck: Cranial nerves 2 through 12 are grossly within normal limits. No evidence of icterus . No neck masses. No JVD. Throat clear. Neck is supple. Chest: Clear. Heart: S1, S2. Abdomen: Soft, nondistended, and nontender. Positive bowel sounds. Extremities: Neurovascularly intact. Neuro: Nonfocal. Laboratory Data: White count is 8.3 with a slight left shift. His sed rate is 66. INR is 1.08. Hi s chemistry shows total bilirubin of 1.5, AST of 104, alk phos of 91. His ammonia level today was 82 . He had an ultrasound of the abdomen done, showed an extensive cholelithiasis with upper limit of n ormal gallbladder wall. If acute cholecystitis is a clinical concern, consider HIDA scan. Heterogen eous liver echotexture probably indicates underlying cirrhosis. Assessment: A 77-year-old gentleman with cholelithiasis, cirrhosis, hepatic encephalopathy. Recommendations: At this time, we will await the results of the HIDA scan. The patient is not a goo d candidate for general anesthesia; however, if he does have acute cholecystitis, we would have to co nsider that. Clinically, it does not feel like the patient has acute cholecystitis at this time. We will keep him on antibiotics. We will await the results of the HIDA scan. We will await the recomm endation by the GI Service and I will be in contact with Dr. Pichardo regarding further interventions as our case develops. Plan of care discussed with the family. AMPARO/MODCarlos Voice ID: [id number] Report ID: [id number]
[2018-04-14] MEDS ORDERED: AZITHROMYCIN IV 250 MG in NA CHLORIDE 0.9% 250 ML IVPB SCH (21:00)
[2018-04-15] MEDS: PIPER/TAZO/NS 3.375gm 3.375 GM/100 ML BAG IVPB SCH ×3 (00:27→17:21)
[2018-04-15] MEDS: NA CHLORIDE 0.9% 1,000 ML IV SCH (00:27)
[2018-04-15] MEDS: LACTULOSE 20 GM/30 ML UCUP PO SCH ×5 (00:28→17:00)
[2018-04-15] MEDS: ALBUTEROL 2.5 MG/3 ML NEB SOL NEB SCH ×4 (01:10→19:20)
[2018-04-15] MEDS: IPRATROPIUM BROM 0.5MG/2.5ML NEB SCH ×4 (01:10→19:20)
--- NOTE | 2018-04-15 05:25 | HP ---
Date of Admission: 04/14/2018 Chief Complaint: Altered mental status. History Of Present Illness: This is a 77-year-old, very pleasant male patient who saw me for initial office visit on 04/08/2018. The patient so far was living in [facility] for a long time and about 1 week ago or so , he moved here to this local area to live with his son. He was under care of aircraft cabin cleaner along with his primary care provider where he was living. 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 He has some supply of this medication, but he was not using it and I did inform him to use his current supply of medication as long as he has it and to take his other medications regularly. He was diagnosed as having cirrhosis of liver in 2005 and at that time, he had upper GI bleeding episode. He was offered to go on a liver transplant list and the patient says that he refused to get any such help and decided to take medical management route for this problem. After I saw him, we did some routine blood work on him this week on Wednesday and we noted that his ammonia level was 72, but we do not know what his baseline ammonia level is, but at the same time when I saw him on Wednesday, his mental status was just like his normal self, so we did not have any concern about any hepatic encephalopathy at that time, but his renal function had shown elevated BUN and creatinine, potassium was low, and chest x-ray had shown small area of some abnormality, which according to radiologist was suspicious for pneumonia. He was started on oral antibiotic Levaquin and his furosemide dose was reduced to 40 mg daily and his levothyroxine dose was increased from 75 to 100 mcg daily. We do not know if the patient has made all these changes or not because as per my discussion now with the patient's son, yesterday evening, he informed me that the patient lives with son and [id number]-cm-pcc and both of them normally leave in the morning and leave coffee for him and the patient was sleeping yesterday morning when they left home. When they came back in the evening time, almost 10 to 12 hours later on, they found out that the patient was still in the bed and there were no signs of him getting out of bed at all. He was obtunded at that time when family tried to arouse him and the ambulance was called and the patient was brought into the emergency room. After he was evaluated in the ER, he was admitted to the hospital with hepatic encephalopathy problem. It is important to note that his ammonia level this time is still 70 and on Wednesday of this week, it was 72. Allergies: NO KNOWN ALLERGIES. Medications: Tylenol 500 mg b.i.d. p.r.n.; amiloride/hydrochlorothiazide 5/50 mg, he takes 2 tablets in the morning, 1 tablet in the afternoon; amlodipine 5 mg daily; Benadryl 25 mg at bedtime as needed; clobetasol topical cream as needed; furosemide 40 mg p.o. daily; lactulose 10 g/15 mL solution, he takes 15 mL by mouth 2 times a day; Levaquin 250 mg daily; levothyroxine 100 mcg daily; pantoprazole 40 mg 2 times a day; potassium chloride 20 mEq p.o. daily; propranolol 120 mg p.o. daily; Spiriva inhaler 1 puff daily; Xifaxan 550 mg p.o. 2 times a day. Review of Systems: FURNITURE REFINISHER: As mentioned above. GI: As mentioned above. All other systems reviewed and negative. 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 Past medical history is also significant for hypokalemia, hypertension, COPD, impaired fasting glucose, anemia, and fatigue. The patient had spontaneous pneumothorax in the past and medical management was provided at that time. Past Surgical History: Hernia repair in 2002 and 2004, appendectomy in 1960, TURP due to benign prostatic hypertrophy. Family History: Significant for Crohn disease, cervical cancer, and cardiovascular disease. Social History: Prior history of smoking. Prior history of alcohol use, but not at present time. He quit alcohol in 2001 and quit smoking in 1998 Physical Examination: Vital Signs: Height 5 feet 8 inches. Weight 138 pounds. Temperature 99.1. Pulse 61. Respiratory rate 18. Blood pressure 126/55. General: The patient is lying in bed, answering most of the questions appropriately, able to recognize me, not in any distress. HEENT: Head atraumatic, normocephalic. Conjunctivae nonerythematous. Sclerae white. Mouth, no thrush or edema noted. Ears/Nose, no mass, lesion, discharge noted. Neck: Supple. No JVD, lymph nodes, bruit, thyromegaly noted. Lungs: Bilateral good equal air entry. Clear to auscultation. No rhonchi. No rales. Heart: Normal heart sounds, no murmur or gallop. Abdomen: Presence of right upper quadrant tenderness. No abdominal distention. Bowel sounds normoactive. No rebound tenderness. No hepatosplenomegaly. No bruit. No ascites. Extremities: No leg edema. No calf tenderness. Skin: No rash, ulcer, cellulitis. Lymphatics: No lymph node enlargement in neck, supraclavicular, infraclavicular region. Neuro: No focal neurological deficit. Chest: Unremarkable. External Genitalia: Deferred. Rectal: Deferred. FURNITURE REFINISHER: The patient is not completely oriented. He is a little bit drowsy, but answers lots of questions appropriately. No focal neurological deficit. Laboratory Data: White count yesterday 10.5, hemoglobin 14.7, platelets 238. This morning, white count 8.3, hemoglobin 12.3, platelets of 187. Yesterday, sodium 132, potassium 3.3, chloride 101, bicarb 21, BUN 45, creatinine 1.60, glucose 124, magnesium 3.1, total bilirubin 1.4, SGOT 65, SGPT 28, alkaline phosphatase 114, ammonia level 70, CPK 1612, CK-MB 14.2, troponin less than 0.02. This morning, sodium 140, potassium 3, chloride 110, bicarb 21, BUN 41, creatinine 1.50, glucose 131, total bilirubin 1.5, ammonia level 82, troponin less than 0.02. Chest x-ray, no acute cardiopulmonary changes. CAT scan of the brain, no acute intracranial changes. Diagnostic Testing: Abdominal ultrasound done today shows gallbladder full of multiple stones. Impression: 1. Hepatic encephalopathy. 2. Rhabdomyolysis. 3. Hypokalemia. 4. Hyponatremia. 5. Chronic kidney disease stage 3. 6. Cirrhosis of liver, alcohol related. 7. Chronic obstructive pulmonary disease. 8. Impaired fasting glucose. 9. Fatigue. 10. Hypertension. 11. Gallstones. Plan: We will admit the patient to hospital for further evaluation and management of this problem. The patient is appropriate for inpatient and is expected to spend 2 midnights in hospital. Home medications will be continued per order. The patient will be seen in consultation by aircraft cabin cleaner and general surgeon. We will order HIDA scan to be done tomorrow to rule out any acute cholecystitis type of problem. Empiric antibiotics will be continued using Zosyn. We will continue lactulose and Xifaxan as plan of treatment for his hepatic encephalopathy problem. Consult Physical Therapy to help ambulate him. GI prophylaxis will be given using Protonix. If the patient needs any gallbladder surgery, he will be considered as a high-risk patient. Details were discussed with Dr. Ramos as well as Dr. Barrett. Details were also discussed with the patient's son. Replace electrolytes per protocol. We will monitor his blood work including ammonia level, and it is important to note that ammonia level is not correlating with the clinical picture as it was 72 yesterday when he presented with altered mental status and obtunded state and its 82 today when his mental status is improving. His mental status is already better, even though he is not back to baseline, but it is better compared to yesterday and his ammonia level was 82. I will see him tomorrow for followup. PATRICIA/ERICH Voice ID: [id number] MTDD
[2018-04-15] MEDS: PANTOPRAZOLE 40 MG INJ IVP SCH (08:43)
[2018-04-15] MEDS: ASPIRIN EC 81 MG TAB PO SCH (08:43)
[2018-04-15] MEDS: PROPRANOLOL HCL 10 MG TAB PO SCH ×2 (08:43→21:14)
[2018-04-15] MEDS: AMLODIPINE 5 MG TAB PO SCH (08:44)
[2018-04-15 10:01] LABS: Absolute Lymphocytes (CBC) 0.8 K/uL (0.7-4.9); Absolute Monocytes 0.8 K/uL (0.1-1.3); Absolute Neutrophil 6.6 K/uL (1.8-8.0); Basophils % 0.6 % (0-1.3); Eosinophils % 1.2 % (0-4.4); Hematocrit 35.5 % (39.6-49.0); Lymphocytes % 9.7 % (15.3-44.8); MCH 29.8 pg (27.0-35.0); MCV 91.7 fL (80-100); MPV 9.6 fL (7.6-11.3); Monocytes % 9.6 % (3.3-12.3); RBC Red Blood Cell Count 3.87 M/uL (4.33-5.43)
[2018-04-15 10:25] LABS: Albumin 2.6 g/dL (3.4-5.0); Bilirubin Total 1.2 mg/dL (0.2-1.0); Magnesium 2.7 mg/dL (1.8-2.4); Protein, Total 8.1 g/dL (6.4-8.2)
[2018-04-15 10:29] LABS: Potassium 2.7 mmol/L (3.5-5.1)
--- NOTE | 2018-04-15 10:56 | RAD REPORT ---
EXAM DESCRIPTION: NM - Hepatobiliary System W/ Ph - 04/15/2018 7:30 am CLINICAL HISTORY: Abdominal pain. COMPARISON: April 14, 2018 ultrasound. TECHNIQUE: 6.2 millicuries technetium Choletec was administered intravenously. Images of the abdomen were obtained for 49 minutes. 1.3 micrograms Kinevac was then administered intravenously and images of the gallbladder obtained for 30 minutes. FINDINGS: The liver demonstrates prompt radiotracer uptake. Activity is seen within small bowel. Radiotracer activity is visualized within the gallbladder by 30 minutes. After the administration of CCK gallbladder ejection fraction equals 11%. The patient was asymptomati c. IMPRESSION: 1. No evidence for acute cholecystitis. 2. Diminished gallbladder ejection fraction of 11% indicative of biliary dyskinesis.
[2018-04-15] MEDS ORDERED: KCL 20 MEQ/100 mL IVPB 20 MEQ/100 ML BAG IV SCH (11:00)
[2018-04-15] MEDS ORDERED: POTASSIUM CL 60 MEQ in NA CHLORIDE 0.9% 500 ML IV SCH (11:00)
[2018-04-15] MEDS ORDERED: ENOXAPARIN 30 MG/0.3 ML SQ SCH (17:00)
[2018-04-15] MEDS: SPIRONOLACTONE 25 MG TABLET PO SCH (21:13)
[2018-04-16] MEDS: PIPER/TAZO/NS 3.375gm 3.375 GM/100 ML BAG IVPB SCH ×2 (00:15→08:15)
[2018-04-16] MEDS ORDERED: POTASSIUM 25 MEQ EFFERV TAB PO ONE ×2 (00:27→06:06)
--- NOTE | 2018-04-16 00:59 | PN ---
Date of Progress Note: 04/15/2018 Subjective: The patient was seen this morning for followup. He was much better. Mental status back to normal. No more confusion. Vital signs reviewed. He had 4 to 5 loose watery bowel movement for today by noon time after I saw him, and also had multiple bowel movements as he describes since I saw him yesterday morning. Denies any abdominal pain, nausea, vomiting. Objective: Vital Signs: Reviewed. HEENT: Unremarkable. Lungs: Clear to auscultation. Heart: Heart sounds normal. Abdomen: Soft, bowel sounds normal. No guarding, rigidity, tenderness, or distention. The patient had right upper quadrant tenderness yesterday, but today his abdominal exam was unremarkable. Extremities: No leg edema. Laboratory Data: White count 8.4, hemoglobin 11.6, platelets 157. Sodium 142, potassium 2.7, chloride 113, bicarb 23, BUN 21, creatinine 1.60, glucose 246, this was not a fasting blood glucose, and ammonia level 18. Impression: 1. Hepatic encephalopathy. 2. Cirrhosis of liver due to alcohol use. 3. Chronic obstructive pulmonary disease. 4. Hypertension. 5. Hypokalemia. 6. Anemia. Plan: We will continue current medications. Lactulose will be discontinued for today. I will restart it tomorrow. Replace potassium per electrolyte replacement protocol. Antihypertensive medications will be continued which is amlodipine. We will add spironolactone 25 mg twice a day. I will see him tomorrow for followup. Possible discharge tomorrow. PATRICIA/MODL Voice ID: [id number] Report ID: [id number] MTDD
[2018-04-16] MEDS: ALBUTEROL 2.5 MG/3 ML NEB SOL NEB SCH ×2 (01:44→08:22)
[2018-04-16] MEDS: IPRATROPIUM BROM 0.5MG/2.5ML NEB SCH ×2 (01:44→08:22)
[2018-04-16 05:46] LABS: Magnesium 2.5 mg/dL (1.8-2.4); Potassium 3.5 mmol/L (3.5-5.1)
[2018-04-16] MEDS: PROPRANOLOL HCL 10 MG TAB PO SCH (08:13)
[2018-04-16] MEDS: AMLODIPINE 5 MG TAB PO SCH (08:13)
[2018-04-16] MEDS: PANTOPRAZOLE 40 MG INJ IVP SCH (08:13)
[2018-04-16] MEDS: ASPIRIN EC 81 MG TAB PO SCH (08:14)
[2018-04-16] MEDS: SPIRONOLACTONE 25 MG TABLET PO SCH (08:14)
--- NOTE | 2018-04-16 17:30 | DS ---
Date of Discharge: 04/16/2018 Disposition: Discharged to go home. Physical Examination: HEENT: Unremarkable. Lungs: Clear to auscultation. Heart: Sounds normal. Abdomen: Soft, bowel sounds normal. No guarding, rigidity, tenderness, or distention. Extremities: No leg edema. Laboratory Data: White count yesterday 8.4, hemoglobin 11.6, platelets 157. Potassium was 2.7 yeste rday, BUN 21, creatinine 1.60, and known fasting glucose 246. Highest ammonia level during this hosp italization was 82, which was on 04/14/2018. Upon admission, his ammonia level was 72. Last ammonia level yesterday was 18. Today, sodium 143, potassium 3.5, chloride 111, bicarb 24, BUN 15, creatini ne 1.10, glucose 152. HIDA scan shows no evidence of acute cholecystitis. Diminished gallbladder ej ection fraction of 11% indicating biliary dyskinesia. Abdominal ultrasound showed extensive cholelit hiasis with upper limit of normal gallbladder wall. Heterogeneous liver, echotexture indicating unde rlying cirrhosis. CAT scan of head negative for any acute intracranial changes. Chest x-ray no pneu monia fibrotic obstructive lung changes noted. Discharge Diagnoses: 1.Hepatic encephalopathy. 2.Gallstones. 3.Biliary dyskinesia. 4.Hypokalemia. 5.Rhabdomyolysis. 6.Hyponatremia. 7.Chronic kidney disease, stage 3. 8.Cirrhosis of liver, alcohol related. 9.Chronic obstructive pulmonary disease. 10.Impaired fasting glucose. 11.Fatigue. 12.Hypertension. Hospital Course: This is a 77-year-old male patient, who was admitted to the hospital with altered m ental status. Please see dictated H and P for more information. After patient was evaluated in the emergency room, he was admitted to the hospital with hepatic encephalopathy. His abdominal exam reve aled presence of right upper quadrant tenderness. So abdominal ultrasound was done, which showed mul tiple gallstones and wanted to rule out possibility of acute cholecystitis. General surgeon, Dr. Jorge hyde and was consulted, and we also obtained HIDA scan. HIDA scan was negative for acute cholecystitis , but it did show evidence of biliary dyskinesia. The patient received empiric IV antibiotics. GI c onsultation was obtained from Dr. Ramos. The patient is considered to be at high risk from any kind o f surgical procedure considering his cirrhosis of liver problem, and at this point Dr. Barrett has not recommended any surgery and medical management was recommended. Discharge Diagnostic Medical Sonographer has not recommended any further intervention. Propranolol was given but at a lower dose 10 mg twice a day. Amlodipine was continued, and the patient was given proton-pump inhibitor therapy. His altered ment al status cleared up. He is back to his baseline, normal again, ambulating well. Appetite is fair. He was given lactulose during this hospitalization and has had multiple diarrhea-type of stools. Af ter 4 diarrheal bowel movements yesterday, we discontinued his lactulose yesterday after 4 bowel move ments, and he had 3 more bowel movement during nighttime, and 1 this morning. I did talk to patient and his son and explained about how the patient should titrate the lactulose dose and explained that he should take first dose in the morning for example around 9 o'clock, and second dose consider to ta ke around noon time, third dose around 3 or 4 o'clock in the afternoon, and last dose around 7 or 8 p .m. The patient to titrate his dose and he may take anywhere from 1 dose to 4 dose in 24 hours depen ding on how many bowel movements he has, and his goal is to have anywhere between 3-4 loose to watery type of bowel movements, and hopefully if we can achieve that we can reduce chances of recurrent hep atic encephalopathy problem. It was also suggested that family can monitor the patient's medication if the patient can keep a log of lactulose doses and bowel movement, so family can also keep track of what is going on, and we did talk about that. Medication changes were discussed with the patient an d family. We will arrange for home health care services for him using facility of the patient's ruff ce. The patient has appointment to see me next week, and he will keep that appointment. His abdomin al pain and tenderness he had has completely resolved on examination today. Instructions/medication: 1.Tylenol 500 mg twice a day as needed. Stop amiloride/HCTZ. 2.Take amlodipine 5 mg p.o. daily. 3.Take Benadryl 25 mg at bedtime as needed for sleep. 4.Use clobetasol topical cream as needed. 5.Furosemide 40 mg 1 tablet p.o. daily. 6.Lactulose 10 g per 15 mL. The patient to take 15 mL by mouth 2-4 times a day as per discussion. 7.Levaquin 250 mg p.o. daily as prescribed. The day before this admission, it was prescribed for 1 week. 8.Levothyroxine 100 mcg p.o. daily. 9.Pantoprazole 40 mg p.o. b.i.d. 10.Potassium chloride 20 mEq p.o. daily. 11.Propranolol 120 mg dose and start propranolol 10 mg p.o. 2 times a day. 12.Spiriva 1 puff daily. 13.Xifaxan 550 mg p.o. 2 times a day. 14.Spironolactone 25 mg p.o. 2 times a day. PATRICIA/MODL Voice ID: [id number] Report ID: [id number]
== END 2018-04-16 11:27 | disposition home or self-care (01) | DRG 442 ==
LOC: ER 19:33 → OBSVTOIN 20:51 → INTOOBSV 20:51 → ERHOLD 20:51 → 4TH 21:50
PROVIDERS: ADMIT Internal Medicine; ATTEND Internal Medicine
DX: K72.90 Hepatic failure, unspecified without coma (principal); M62.82 Rhabdomyolysis; E87.1 Hypo-osmolality and hyponatremia; K82.8 Other specified diseases of gallbladder; K80.80 Other cholelithiasis without obstruction; E87.6 Hypokalemia; I12.9 Hypertensive chronic kidney disease with stage 1 through stage 4 chronic kidney disease, or unspecified chronic kidney disease; N18.3 Chronic kidney disease, stage 3 (moderate); K70.30 Alcoholic cirrhosis of liver without ascites; J44.9 Chronic obstructive pulmonary disease, unspecified; R73.01 Impaired fasting glucose; R53.83 Other fatigue; D64.9 Anemia, unspecified; F10.21 Alcohol dependence, in remission
CPT/HCPCS: 36415; 70450; 71045; 71046; 76700; 78227; 80048; 80053; 80061; 80076; 81003; 82140; 82150; 82550; 82553; 82805; 82962; 83036; 83605; 83690; 83735; 84100; 84132; 84145; 84439; 84443; 84484; 85025; 85610; 85652; 85730; 86140; 87040; 87086; 87088; 93005; 97163; 99285; A9537; C9113; J0456; J1650; J2405; J2543; J2805; J3411; J7030

== ENCOUNTER 2019-05-10 15:10 | Emergency (ER) | payer OTHER ==
--- OUTSIDE RECORDS SUMMARY | 2019-05-10 15:13 | XMS REPORT ---
:1940 [facility] [address] [place] [address] Dr. Mata [address] [place] [id number] Care Team Providers Name Role Phone Antolin [...] HgbA1c, PTHi (test code=BNP) 122.7 pg/mL 0-100 [id number] 08:25:00 Test Item Value Reference Range Comments Chemistry (test 0.8 ng/mL 0-6.6 code=CKMBM-T) Chemistry (test Less than 0.010 < 0.028 code=TROPI-T) ng/mL Reference Range 0.00 - 0.028 ng/mL Negative 0.029 - 0.29 ng/mL Indeterminate Greater or Equal to 0.3 ng/mL Strongly suggests [facility] [id number] 08:23:00 Test Item Value Reference Range Comments [...] 5-34 Chemistry (test code=ALT) 16 U/L 8-55 [id number] 08:23:00 Test Item Value Reference Range Comments Chemistry (test code=LIP) 42 U/L 8-78 [id number] 08:07:00 Test Item Value Reference Range Comments Coagulation (test 14.7 SEC 12.0-14.7 code=PT-T) Coagulation (test 1.1 ATTENTION: READ code=INR) CAREFULLY -The recommended therapeutic ranges for oral anticoagulanttreatments are: Low Intensity: 1.5 - 2.0 Moderate Intensity: 2.0 - 3.0 High Intensity (1): 2.5 - 3.5 High Intensity (2): 3.0 - 4.0 CRITICAL: > 4.0 Anticoagulant? NONEMedical Necessity SUSPECT COAGULOPATHYAnticoagulant? NONEMedical Necessity: SUSP [id number] 08:07:00 Test Item Value Reference Range Comments Coagulation (test code=PTT) 29.1 SEC 22.9-36.1 Anticoagulant? NONEMedical Necessity SUSPECT COAGULOPATHYAnticoagulant? NONEMedical Necessity: SUSP [id number] 08:01:00 Test Item Value Reference Range Comments [...] Hematology (test code=BASO#) 0.1 thou/uL 0.0-0.2 Culture, [id number] 09:53:00 Test Item Value Reference Range Comments Culture, Urine (test code=URC) Gram Negative Juan Culture, Urine (test clinically indicated. code=URC1) O:ALPS (test code=ALPS) Alpha-Hemolytic Streptococcus Culture, Urine (test QUANTITATION: code=URC1.1) Culture, Urine (test >100,000 cfu/mL code=URC1.1) O:GNR (test code=GNR) Gram Negative Juan Culture, Urine (test QUANTITATION: code=URC1.2) Culture, Urine (test <5,000 cfu/mL code=URC1.2) [id number] 10:30:00 Test Item Value Reference Range Comments [...] 83-110 Chemistry (test code=CA) 8.9 mg/dL 7.8-10.44 [id number] 10:30:00 Test Item Value Reference Range Comments Chemistry (test code=MG) 2.2 mg/dL 1.6-2.6 [id number] 10:20:00 Test Item Value Reference Range Comments [...] 0.0-0.7 Hematology (test code=BASO#) 0.1 thou/uL 0.0-0.2 [id number] 15:43:00 Test Item Value Reference Range Comments Chemistry (test Less than 0.010 < 0.028 code=TROPI-T) ng/mL Reference Range 0.00 - 0.028 ng/mL Negative 0.029 - 0.29 ng/mL Indeterminate Greater or Equal to 0.3 ng/mL Strongly suggests [facility] [id number] 12:59:00 Test Item Value Reference Range Comments Chemistry (test Less than 0.010 < 0.028 code=TROPI-T) ng/mL Reference Range 0.00 - 0.028 ng/mL Negative 0.029 - 0.29 ng/mL Indeterminate Greater or Equal to 0.3 ng/mL Strongly suggests [facility] [id number] 10:42:00 Test Item Value Reference Range Comments [...] Urine Source: Urine VoidedChemistry - BNP, HgbA1c, [id number] 09:59:00 Test Item Value Reference Range Comments Chemistry - BNP, HgbA1c, PTHi (test code=BNP) 112.0 pg/mL 0-100 [id number] 09:40:00 Test Item Value Reference Range Comments Chemistry (test 1.0 ng/mL 0-6.6 code=CKMBM-T) Chemistry (test 0.013 ng/mL < 0.028 code=TROPI-T) Reference Range 0.00 - 0.028 ng/mL Negative 0.029 - 0.29 ng/mL Indeterminate Greater or Equal to 0.3 ng/mL Strongly suggests [facility] [id number] 09:37:00 Test Item Value Reference Range Comments [...] 5-34 Chemistry (test code=ALT) 15 U/L 8-55 [id number] 09:37:00 Test Item Value Reference Range Comments Chemistry (test code=CK) 60 U/L 30-200 [id number] 09:37:00 Test Item Value Reference Range Comments Chemistry (test code=LIP) 42 U/L 8-78 [id number] 09:33:00 Test Item Value Reference Range Comments Coagulation (test 15.1 SEC 12.0-14.7 code=PT-T) Coagulation (test 1.2 ATTENTION: READ code=INR) CAREFULLY -The recommended therapeutic ranges for oral anticoagulanttreatments are: Low Intensity: 1.5 - 2.0 Moderate Intensity: 2.0 - 3.0 High Intensity (1): 2.5 - 3.5 High Intensity (2): 3.0 - 4.0 CRITICAL: > 4.0 Coagulation (test 29.9 SEC 22.9-36.1 code=PTT) Anticoagulant? NONEMedical Necessity: SUSPECT [id number] 09:21:00 Test Item Value Reference Range Comments [...]
--- NOTE | 2019-05-10 15:55 | ER ---
Nurse's Notes [facility] Name: Cristian Jaramillo Age: 78 yrs Sex: Male : 1940 Arrival Date: 05/10/2019 Time: 15:11 Bed 24 Private MD: Diagnosis: Dysuria;Urinary tract infection, site not specified Presentation: 05/10 15:13 Presenting complaint: Patient states: i think i have a bladder infection, it west to pee towards the end, this started Wednesday; reports fever and chills;. Transition of care: patient was not received from another setting of care. Onset of symptoms was May 10, 2019. Risk Assessment: Do you want to hurt yourself or someone else? Patient reports no desire to harm self or others. Initial Sepsis Screen: Does the patient meet any 2 criteria? No. Patient's initial sepsis screen is negative. Does the patient have a suspected source of infection? No. Patient's initial sepsis screen is negative. Care prior to arrival: None. 15:13 Method Of Arrival: Ambulatory 15:13 Acuity: CORI 4 hj Historical: - Allergies: 15:15 No Known Allergies; hj - PMHx: 15:15 Alcoholism; Cirrhosis; COPD; enlarged prostate; hj - PSHx: 15:15 TURP; hj - Immunization history:: Adult Immunizations up to date. - Social history:: Smoking status: Patient/guardian denies using tobacco. - Ebola Screening: : Patient negative for fever greater than or equal to 101.5 degrees Fahrenheit, and additional compatible Ebola Virus Disease symptoms Patient denies exposure to infectious person Patient denies travel to an Ebola-affected area in the 21 days before illness onset No symptoms or risks identified at this time. Screenin:25 Abuse screen: Denies threats or abuse. Denies injuries from another. Nutritional ca1 screening: No deficits noted. Tuberculosis screening: No symptoms or risk factors identified. Fall Risk None identified. Assessment: 15:25 General: Appears in no apparent distress. comfortable, Behavior is calm, cooperative, ca1 appropriate for age. Pain: Complains of pain in suprapubic area Pain does not radiate. Pain currently is 3 out of 10 on a pain scale. Quality of pain is described as crampy, Pain began 2-3 days ago. Is episodic. Neuro: Level of Consciousness is awake, alert, obeys commands, Oriented to person, place, time, situation. Cardiovascular: Heart tones S1 S2 present Capillary refill < 3 seconds Patient's skin is warm and dry. Respiratory: Airway is patent Respiratory effort is even, unlabored, Respiratory pattern is regular, symmetrical, Breath sounds are clear bilaterally. GI: Abdomen is flat, non-distended, Bowel sounds present X 4 quads. Abd is soft and non tender X 4 quads. Patient currently denies nausea, vomiting. : Reports burning with urination, since Wednesday. EENT: No deficits noted. No signs and/or symptoms were reported regarding the EENT system. Derm: Skin is intact, is healthy with good turgor, Skin is pink, warm \T\ dry. Musculoskeletal: Circulation, motion, and sensation intact. Capillary refill < 3 seconds, Range of motion: intact in all extremities. 16:03 Reassessment: Patient appears in no apparent distress at this time. Patient is alert, ca1 oriented x 3, equal unlabored respirations, skin warm/dry/pink. Vital Signs: 15:15 BP 162 / 58; Pulse 67; Resp 18; Temp 100.8(TE); Pulse Ox 100% on R/A; Weight 65.77 kg; hj Height 5 ft. 3 in. (160.02 cm); Pain 0/10; 16:03 BP 156 / 57; Pulse 66; Resp 17 S; Pulse Ox 100% on R/A; ca1 15:15 Body Mass Index 25.68 (65.77 kg, 160.02 cm) ED Course: 15:11 Patient arrived in ED. as 15:14 Triage completed. hj 15:15 Arm band placed on right wrist. hj 15:18 Maggy Hicks FNP-C is PHCP. snw 15:18 Balta Burroughs MD is Attending Physician. snw 15:22 Jaleesa Weinstein, EMMA is Primary Nurse. ca1 15:25 Patient has correct armband on for positive identification. Placed in gown. Bed in low ca1 position. Call light in reach. Side rails up X 1. Pulse ox on. NIBP on. Head of bed elevated. 15:53 Brian Pichardo MD is Referral Physician. snw 16:04 No provider procedures requiring assistance completed. Patient did not have IV access ca1 during this emergency room visit. Administered Medications: 16:00 Drug: Cipro 500 mg Route: PO; dm5 16:05 Follow up: Response: Medication administered at discharge. ca1 16:00 Drug: Motrin 400 mg Route: PO; dm5 16:05 Follow up: Response: Medication administered at discharge. ca1 Outcome: 15:53 Discharge ordered by . melissa 16:04 Discharged to home ambulatory. ca1 16:04 Condition: stable 16:04 Discharge instructions given to patient, Instructed on discharge instructions, follow up and referral plans. medication usage, Demonstrated understanding of instructions, follow-up care, medications, Prescriptions given X 1. 16:13 Patient left the ED. ca1 Signatures: Marleny Stevens, RN RN dm5 Maggy Hicks, SALES PROMOTION COORDINATOR-C SALES PROMOTION COORDINATOR-Bianca White Henry, RN RN Jaleesa Weinstein RN RN ca1 Corrections: (The following items were deleted from the chart) 15:16 15:15 Pulse 67bpm; Resp 18bpm; Pulse Ox 100% RA; Temp 100.8F Temporal; 65.77 kg; Height hj 5 ft. 3 in.; BMI: 25.6; Pain 0/10; hj
--- NOTE | 2019-05-10 15:55 | EDPHYS ---
Physician Documentation [facility] Name: Cristian Jaramillo Age: 78 yrs Sex: Male : 1940 Arrival Date: 05/10/2019 Time: 15:11 Bed 24 Private MD: ED Physician Balta Burroughs HPI: 05/10 15:59 This 78 yrs old Male presents to ER via Ambulatory with complaints of Urinary snw Problem. 15:59 The patient presents with urinary symptoms, bladder pressure, frequency. Onset: The snw symptoms/episode began/occurred suddenly, 1 day(s) ago, and became persistent. Associated signs and symptoms: Pertinent positives: fever. Severity of symptoms: At their worst the symptoms were mild. The patient has experienced similar episodes in the past. provided urine sample at PCP office. Historical: - Allergies: 15:15 No Known Allergies; hj - PMHx: 15:15 Alcoholism; Cirrhosis; COPD; enlarged prostate; hj - PSHx: 15:15 TURP; hj - Immunization history:: Adult Immunizations up to date. - Social history:: Smoking status: Patient/guardian denies using tobacco. - Ebola Screening: : Patient negative for fever greater than or equal to 101.5 degrees Fahrenheit, and additional compatible Ebola Virus Disease symptoms Patient denies exposure to infectious person Patient denies travel to an Ebola-affected area in the 21 days before illness onset No symptoms or risks identified at this time. ROS: 15:56 Eyes: Negative for injury, pain, redness, and discharge. snw 15:56 ENT: Negative for injury, pain, and discharge, Neck: Negative for injury, pain, and swelling, Cardiovascular: Negative for chest pain, palpitations, and edema, Respiratory: Negative for shortness of breath, cough, wheezing, and pleuritic chest pain, Abdomen/GI: Negative for abdominal pain, nausea, vomiting, diarrhea, and constipation, Back: Negative for injury and pain. 15:56 MS/Extremity: Negative for injury and deformity, Skin: Negative for injury, rash, and discoloration, Neuro: Negative for headache, weakness, numbness, tingling, and seizure. 15:56 Constitutional: Positive for fever. 15:56 : Positive for bladder feels under pressure, low grade temperature today. Pt had Bactrim 03/12/19 for UTI. S/p TURP. no circumcised . Exam: 15:56 Constitutional: This is a well developed, well nourished patient who is awake, alert, snw and in no acute distress. Head/Face: Normocephalic, atraumatic. Eyes: Pupils equal round and reactive to light, extra-ocular motions intact. Lids and lashes normal. Conjunctiva and sclera are non-icteric and not injected. Cornea within normal limits. Periorbital areas with no swelling, redness, or edema. ENT: Nares patent. No nasal discharge, no septal abnormalities noted. Tympanic membranes are normal and external auditory canals are clear. Oropharynx with no redness, swelling, or masses, exudates, or evidence of obstruction, uvula midline. Mucous membranes moist. Neck: Trachea midline, no thyromegaly or masses palpated, and no cervical lymphadenopathy. Supple, full range of motion without nuchal rigidity, or vertebral point tenderness. No Meningismus. Chest/axilla: Normal chest wall appearance and motion. Nontender with no deformity. No lesions are appreciated. Cardiovascular: Regular rate and rhythm with a normal S1 and S2. No gallops, murmurs, or rubs. Normal PMI, no JVD. No pulse deficits. + lower extremity edema, pt states it is his norm. Takes Lasix 40mg and Spironolactone. Respiratory: Lungs have equal breath sounds bilaterally, clear to auscultation and percussion. No rales, rhonchi or wheezes noted. No increased work of breathing, no retractions or nasal flaring. Abdomen/GI: Soft, non-tender, with normal bowel sounds. No distension or tympany. No guarding or rebound. No evidence of tenderness throughout. Back: No spinal tenderness. No costovertebral tenderness. Full range of motion. Skin: Warm, dry with normal turgor. Normal color with no rashes, no lesions, and no evidence of cellulitis. MS/ Extremity: Pulses equal, no cyanosis. Neurovascular intact. Full, normal range of motion. Neuro: Awake and alert, GCS 15, oriented to person, place, time, and situation. Cranial nerves II-XII grossly intact. Motor strength 5/5 in all extremities. Sensory grossly intact. Cerebellar exam normal. Normal gait. Psych: Awake, alert, with orientation to person, place and time. Behavior, mood, and affect are within normal limits. Vital Signs: 15:15 BP 162 / 58; Pulse 67; Resp 18; Temp 100.8(TE); Pulse Ox 100% on R/A; Weight 65.77 kg; hj Height 5 ft. 3 in. (160.02 cm); Pain 0/10; 16:03 BP 156 / 57; Pulse 66; Resp 17 S; Pulse Ox 100% on R/A; ca1 15:15 Body Mass Index 25.68 (65.77 kg, 160.02 cm) hj MDM: 15:25 Patient medically screened. snw 15:58 Data reviewed: vital signs, nurses notes. Data interpreted: Pulse oximetry: on room air snw is 100 %. Interpretation: normal. Counseling: I had a detailed discussion with the patient and/or guardian regarding: the historical points, exam findings, and any diagnostic results supporting the discharge/admit diagnosis, the presence of at least one elevated blood pressure reading (>120/80) during this emergency department visit, lab results, the need for outpatient follow up, to return to the emergency department if symptoms worsen or persist or if there are any questions or concerns that arise at home. Special discussion: Based on the history and exam findings, there is no indication for further emergent testing or inpatient evaluation. I discussed with the patient/guardian the need to see the primary care provider for further evaluation of the symptoms. 05/10 15:21 Order name: Urine Culture [facility] 05/10 15:21 Order name: Urine Microscopic Only [facility] 05/10 15:21 Order name: Urine Dipstick-Ancillary (obtain specimen); Complete Time: 15:44 [facility] 05/10 15:52 Order name: Urine Dipstick--Ancillary (enter results) bd Administered Medications: 16:00 Drug: Cipro 500 mg Route: PO; dm5 16:05 Follow up: Response: Medication administered at discharge. ca1 16:00 Drug: Motrin 400 mg Route: PO; dm5 16:05 Follow up: Response: Medication administered at discharge. ca1 Disposition: 16:38 Co-signature as Attending Physician, Balta Burroughs MD. rn Disposition: 05/10/19 15:53 Discharged to Home. Impression: Dysuria, Urinary tract infection, site not specified. - Condition is Stable. - Discharge Instructions: Dysuria, Fever, Adult, Urinary Tract Infection, Adult. - Prescriptions for Cipro 500 mg Oral Tablet - take 1 tablet by ORAL route every 12 hours for 7 days; 14 tablet. - Medication Reconciliation Form, Thank You Letter, Antibiotic Education, Prescription Opioid Use form. - Follow up: Brian Pichardo MD; When: 2 - 3 days; Reason: Recheck today's complaints, Continuance of care, Re-evaluation by your physician. Follow up: Emergency Department; When: As needed; Reason: Worsening of condition. Signatures: Dispatcher [employer] EDMS Marleny Stevens, RN RN dm5 Maggy Hicks, FATS AND OILS LOADER-C FATS AND OILS LOADER-Csnw Balta Burroughs MD MD rn Joaquin, Henry, RN RN Jaleesa Weinstein RN RN ca1 Corrections: (The following items were deleted from the chart) 16:13 15:53 05/10/2019 15:53 Discharged to Home. Impression: Dysuria; Urinary tract ca1 infection, site not specified. Condition is Stable. Forms are Medication Reconciliation Form, Thank You Letter, Antibiotic Education, Prescription Opioid Use. Follow up: Brian Pichardo; When: 2 - 3 days; Reason: Recheck today's complaints, Continuance of care, Re-evaluation by your physician. Follow up: Emergency Department; When: As needed; Reason: Worsening of condition. snw
[2019-05-10] MEDS ORDERED: CIPROFLOXACIN HCL 500 MG TAB ONE (16:13)
[2019-05-10] MEDS ORDERED: IBUPROFEN 400 MG TAB ONE (16:13)
[2019-05-10 16:32] LABS: Urine Blood TRACE (NEG); Urine Glucose NEGATIVE (NEG); Urine Protein 1+ (NEG); Urine Specific Gravity 1.015 (1.005-1.030); Urine pH 5.5 (5.0-7.0)
[2019-05-10 16:34] LABS: Urine Amorphous Sediment 1+ /HPF (NONE SEEN); Urine Bacteria >50 /HPF (NONE SEEN); Urine Culture Reflex Order NOT NEEDED; Urine Mucus 3+ /HPF (NONE SEEN)
== END 2019-05-10 16:13 | disposition home or self-care (01) ==
LOC: ER 15:10
DX: N39.0 Urinary tract infection, site not specified (principal); J44.9 Chronic obstructive pulmonary disease, unspecified
CPT/HCPCS: 81003; 81015; 87077; 87086; 87088; 87186

== ENCOUNTER 2020-04-25 21:08 | Emergency (ER) | payer OTHER ==
--- OUTSIDE RECORDS SUMMARY | 2020-04-25 21:48 | XMS REPORT | Continuity of Care Document ---
:1940 Author Organization [facility] t Address [address] [place] [address] Dr. Mata [address] [place] [id number] Care Team Providers Name Role Phone Antolin Attending Clinician Unavailable Elisa Mcrae Attending Clinician Unavailable Lobo Attending Clinician Unavailable Elisa Mcrae Admitting Clinician Unavailable Problems This patient has no known problems. Allergies, Adverse Reactions, Alerts This patient has no known allergies or adverse reactions. Medications This patient has no known medications. Procedures This patient has no known procedures. Results Test Description Test Time Test Comments Results Result Comments Source Chemistry - BNP, HgbA1c, PTHi 2018-04-02 08:25:00 Test Item Value Reference Range Interpretation Comme nts Chemistry - BNP, HgbA1c, PTHi (test code = BNP) 122.7 pg/mL 0-100 H [id number] 08:25:00 Test Item Value Reference Range Interpretation Comments Chemistry (test 0.8 ng/mL 0-6.6 N code = CKMBM-T) Chemistry (test Less than < 0.028 code = TROPI-T) 0.010 ng/mL Reference Ra nge 0. 00 - 0.028 ng/mL Negative 0.029 - 0.29 n g/mL Indeterminate Greater or Equa l to 0.3 ng/mL [facility] [place] [id number] 08:23:00 Test Item Value Reference Range Interpretation Comments Chemistry (test code 133 mmol/L 136-145 L = NA-T) Chemistry (test code 3.1 mmol/L 3.5-5.1 L = K-T) Chemistry (test code 94 mmol/L 98-107 L = CL) Chemistry (test code 29 mmol/L 23-31 N = CO2) Chemistry (test code 13 mmol/L 10-20 N = ANGP) Chemistry (test code 45 mg/dL 8.4-25.7 H = BUN) Chemistry (test code 1.63 mg/dL 0.6-1.3 H = CREATT) Chemistry (test code 41 Referen ce Range for = EGFRMDRD) Estimated GFR: Great er than 90 mL/min/1.73 m2NOTE:The MDRD equation has no t been validated for u se with theelderly (ove r 70 years of age), women, patientswith se rious comorbid condit ion or persons with ex tremes ofbody size, mu scle mass, or nutrit ional status. Chemistry (test code 121 mg/dL 83-110 H = GLU-T) Chemistry (test code 9.5 mg/dL 7.8-10.44 N = CA) Chemistry (test code 1.4 mg/dL 0.2-1.2 H = TBILI) Chemistry (test code 9.3 g/dL 5.8-8.1 H = TP) Chemistry (test code 3.5 g/dL 3.4-4.8 N = ALB) Chemistry (test code 5.8 g/dL 2.4-3.5 H = GLOB) Chemistry (test code 0.6 g/dL 1.2-2.2 L = AG) Chemistry (test code 114 U/L 40-150 N = ALP) Chemistry (test code 30 U/L 5-34 N = AST) Chemistry (test code 16 U/L 8-55 N = ALT) [id number] 08:23:00 Test Item Value Reference Range Interpretation Comments Chemistry (test code = LIP) 42 U/L 8-78 N [id number] 08:07:00 Test Item Value Reference Range Interpretation Comments Coagulation (test 14.7 SEC 12.0-14.7 N code = PT-T) Coagulation (test 1.1 ATTENTION: code = INR) READ CAREFULLY-- The recommended the rapeutic ranges for oral anticoagulanttr eatments are: ------ Low Intensity: 1.5 - 2.0 Moderate In tensity: 2.0 - 3.0 High Intensity (1): 2.5 - 3.5 High In tensity (2): 3.0 - 4. 0 CRITICAL: > 4.0 Anticoagulant? NONEMedical Necessity SUSPECT COAGULOPATHYAnticoagulant? NONEMedical Necessity: SUSP [id number] 08:07:00 Test Item Value Reference Range Interpretation Comments Coagulation (test code = PTT) 29.1 SEC 22.9-36.1 N Anticoagulant? NONEMedical Necessity SUSPECT COAGULOPATHYAnticoagulant? NONEMedical Necessity: SUSP [id number] 08:01:00 Test Item Value Reference Range Interpretation Comments Hematology (test code = WBCT) 6.6 thou/uL 4.8-10.8 N Hematology (test code = RBCT) 4.22 mill/uL 4.70-6.10 L Hematology (test code = HGBT) 13.2 g/dL 14.0-18.0 L Hematology (test code = HCTT) 38.3 % 42.0-52.0 L Hematology (test code = MCV) 90.8 fl 80.0-94.0 N Hematology (test code = MCH) 31.4 pg 27.0-31.0 H Hematology (test code = MCHC) 34.5 g/dL 32.0-36.0 N Hematology (test code = RDW) 13.1 % 11.5-14.5 N Hematology (test code = PLTT) 219 thou/uL 130-400 N Hematology (test code = MPV) 7.7 fL 7.4-10.4 N Hematology (test code = %NEUT) 59.3 % 42.0-75.0 N Hematology (test code = %LYMPH) 21.7 % 21.0-51.0 N Hematology (test code = %MONO) 13.2 % 0.0-10.0 H Hematology (test code = %EOS) 4.8 % 0.0-10.0 N Hematology (test code = %BASO) 1.0 % 0.0-1.0 N Hematology (test code = NEUT#) 3.9 thou/uL 1.40-6.50 N Hematology (test code = LYMPH#) 1.4 thou/uL 1.20-3.40 N Hematology (test code = MONO#) 0.9 thou/uL 0.11-0.59 H Hematology (test code = EOS#) 0.3 thou/uL 0.0-0.7 N Hematology (test code = BASO#) 0.1 thou/uL 0.0-0.2 N Culture, [id number] 09:53:00 Test Item Value Reference Range Interpretation Comments Culture, Urine Gram Negative Juan (test code = URC) Culture, Urine clinically indicated. (test code = URC1) O:ALPS (test code = Alpha-Hemolytic ALPS) Streptococcus Culture, Urine QUANTITATION: (test code = URC1.1) Culture, Urine >100,000 cfu/mL (test code = URC1.1) O:GNR (test code = Gram Negative Juan GNR) Culture, Urine QUANTITATION: (test code = URC1.2) Culture, Urine <5,000 cfu/mL (test code = URC1.2) [id number] 10:30:00 Test Item Value Reference Range Interpretation Comments Chemistry (test code 134 mmol/L 136-145 L = NA-T) Chemistry (test code 3.1 mmol/L 3.5-5.1 L = K-T) Chemistry (test code 100 mmol/L 98-107 N = CL) Chemistry (test code 25 mmol/L 23-31 N = CO2) Chemistry (test code 12 mmol/L 10-20 N = ANGP) Chemistry (test code 25 mg/dL 8.4-25.7 N = BUN) Chemistry (test code 1.25 mg/dL 0.6-1.3 N = CREATT) Chemistry (test code 56 Referen ce Range for = EGFRMDRD) Estimated GFR: Great er than 90 mL/min/1.73 m2NOTE:The MDRD equation has no t been validated for u se with theproctor hospitalerly (ove r 70 years of age), women, patientswith se rious comorbid condit ion or persons with ex tremes ofbody size, mu scle mass, or nutrit ional status. Chemistry (test code 233 mg/dL 83-110 H = GLU-T) Chemistry (test code 8.9 mg/dL 7.8-10.44 N = CA) [id number] 10:30:00 Test Item Value Reference Range Interpretation Comments Chemistry (test code = MG) 2.2 mg/dL 1.6-2.6 N [id number] 10:20:00 Test Item Value Reference Range Interpretation Comments Hematology (test code = WBCT) 6.2 thou/uL 4.8-10.8 N Hematology (test code = RBCT) 4.28 mill/uL 4.70-6.10 L Hematology (test code = HGBT) 13.6 g/dL 14.0-18.0 L Hematology (test code = HCTT) 39.8 % 42.0-52.0 L Hematology (test code = MCV) 93.2 fl 80.0-94.0 N Hematology (test code = MCH) 31.9 pg 27.0-31.0 H Hematology (test code = MCHC) 34.2 g/dL 32.0-36.0 N Hematology (test code = RDW) 13.1 % 11.5-14.5 N Hematology (test code = PLTT) 165 thou/uL 130-400 N Hematology (test code = MPV) 9.3 fL 7.4-10.4 N Hematology (test code = %NEUT) 63.4 % 42.0-75.0 N Hematology (test code = %LYMPH) 17.2 % 21.0-51.0 L Hematology (test code = %MONO) 10.7 % 0.0-10.0 H Hematology (test code = %EOS) 7.8 % 0.0-10.0 N Hematology (test code = %BASO) 0.9 % 0.0-1.0 N Hematology (test code = NEUT#) 3.9 thou/uL 1.40-6.50 N Hematology (test code = LYMPH#) 1.1 thou/uL 1.20-3.40 L Hematology (test code = MONO#) 0.7 thou/uL 0.11-0.59 H Hematology (test code = EOS#) 0.5 thou/uL 0.0-0.7 N Hematology (test code = BASO#) 0.1 thou/uL 0.0-0.2 N [id number] 15:43:00 Test Item Value Reference Range Interpretation Comments Chemistry (test Less than < 0.028 code = TROPI-T) 0.010 ng/mL Reference Ra nge 0. 00 - 0.028 ng/mL Negative 0.029 - 0.29 n g/mL Indeterminate Greater or Equa l to 0.3 ng/mL [facility] [place] suggests [place] [id number] 12:59:00 Test Item Value Reference Range Interpretation Comments Chemistry (test Less than < 0.028 code = TROPI-T) 0.010 ng/mL Reference Ra nge 0. 00 - 0.028 ng/mL Negative 0.029 - 0.29 n g/mL Indeterminate Greater or Equa l to 0.3 ng/mL [facility] suggests [place] [id number] 10:42:00 Test Item Value Reference Range Interpretation Comments Urinalysis (test code = YELLOW Yellow UACLR) Urinalysis (test code = CLOUDY Clear UACLY) Urinalysis (test code = 1.015 1.002-1.036 N SPGR) Urinalysis (test code = 8.0 5.0-9.0 N ILIANA) Urinalysis (test code = Moderate Negative A UALEU) Urinalysis (test code = Negative Negative UANIT) Urinalysis (test code = Negative mg/dL Neg-Trace PROUADIP) Urinalysis (test code = Negative mg/dL Negative GLUCU) Urinalysis (test code = Negative mg/dL Negative KETU) Urinalysis (test code = 0.2 mg/dL 0.2-1.0 UAUROB) Urinalysis (test code = Negative Negative UABIL) Urinalysis (test code = Negative Negative UABLD) Urinalysis (test code = None Seen HPF 0-3 UARBC) Urinalysis (test code = Greater Than 50-TNTC 0-3 A UAWBC) HPF Urinalysis (test code = 0-3 HPF 0-3 UASQUAM) Urinalysis (test code = Rare-Few HPF None Seen UABAC) Urinalysis (test code = 4-6 HYALINE CAST LPF 0-3 Hyaline A UACAST) Urine Source: Urine VoidedChemistry - BNP, HgbA1c, [id number] 09:59:00 Test Item Value Reference Range Interpretation Comments Chemistry - BNP, HgbA1c, PTHi 112.0 pg/mL 0-100 H (test code = BNP) [id number] 09:40:00 Test Item Value Reference Range Interpretation Comments Chemistry (test 1.0 ng/mL 0-6.6 N code = CKMBM-T) Chemistry (test 0.013 ng/mL < 0.028 code = TROPI-T) Reference Ra nge 0.0 0 - 0.028 ng/mL Negative 0.0 29 - 0.29 ng/mL Indeterminate Greater or Equal to 0.3 ng/mL Strongly sugge sts [place] [id number] 09:37:00 Test Item Value Reference Range Interpretation Comments Chemistry (test code 135 mmol/L 136-145 L = NA-T) Chemistry (test code 3.1 mmol/L 3.5-5.1 L = K-T) Chemistry (test code 97 mmol/L 98-107 L = CL) Chemistry (test code 29 mmol/L 23-31 N = CO2) Chemistry (test code 12 mmol/L 10-20 N = ANGP) Chemistry (test code 32 mg/dL 8.4-25.7 H = BUN) Chemistry (test code 1.39 mg/dL 0.6-1.3 H = CREATT) Chemistry (test code 50 Referen ce Range for = EGFRMDRD) Estimated GFR: Great er than 90 mL/min/1.73 m2NOTE:The MDRD equation has no t been validated for u se with theelderly (ove r 70 years of age), women, patientswith se rious comorbid condit ion or persons with ex tremes ofbody size, mu scle mass, or nutrit ional status. Chemistry (test code 135 mg/dL 83-110 H = GLU-T) Chemistry (test code 9.5 mg/dL 7.8-10.44 N = CA) Chemistry (test code 0.8 mg/dL 0.2-1.2 N = TBILI) Chemistry (test code 9.1 g/dL 5.8-8.1 H = TP) Chemistry (test code 3.3 g/dL 3.4-4.8 L = ALB) Chemistry (test code 5.8 g/dL 2.4-3.5 H = GLOB) Chemistry (test code 0.6 g/dL 1.2-2.2 L = AG) Chemistry (test code 109 U/L 40-150 N = ALP) Chemistry (test code 27 U/L 5-34 N = AST) Chemistry (test code 15 U/L 8-55 N = ALT) [id number] 09:37:00 Test Item Value Reference Range Interpretation Comments Chemistry (test code = CK) 60 U/L 30-200 N [id number] 09:37:00 Test Item Value Reference Range Interpretation Comments Chemistry (test code = LIP) 42 U/L 8-78 N [id number] 09:33:00 Test Item Value Reference Range Interpretation Comments Coagulation (test 15.1 SEC 12.0-14.7 H code = PT-T) Coagulation (test 1.2 ATTENTION: code = INR) READ CAREFULLY-- The recommended the rapeutic ranges for oral anticoagulanttr eatments are: ------ Low Intensity: 1.5 - 2.0 Moderate In tensity: 2.0 - 3.0 High Intensity (1): 2.5 - 3.5 High In tensity (2): 3.0 - 4. 0 CRITICAL: > 4.0 Coagulation (test 29.9 SEC 22.9-36.1 N code = PTT) Anticoagulant? NONEMedical Necessity: SUSPECT [id number] 09:21:00 Test Item Value Reference Range Interpretation Comments Hematology (test code = WBCT) 7.3 thou/uL 4.8-10.8 N Hematology (test code = RBCT) 4.41 mill/uL 4.70-6.10 L Hematology (test code = HGBT) 13.6 g/dL 14.0-18.0 L Hematology (test code = HCTT) 41.2 % 42.0-52.0 L Hematology (test code = MCV) 93.2 fl 80.0-94.0 N Hematology (test code = MCH) 30.9 pg 27.0-31.0 N Hematology (test code = MCHC) 33.1 g/dL 32.0-36.0 N Hematology (test code = RDW) 12.7 % 11.5-14.5 N Hematology (test code = PLTT) 186 thou/uL 130-400 N Hematology (test code = MPV) 8.3 fL 7.4-10.4 N Hematology (test code = %NEUT) 64.9 % 42.0-75.0 N Hematology (test code = %LYMPH) 19.1 % 21.0-51.0 L Hematology (test code = %MONO) 10.8 % 0.0-10.0 H Hematology (test code = %EOS) 4.6 % 0.0-10.0 N Hematology (test code = %BASO) 0.6 % 0.0-1.0 N Hematology (test code = NEUT#) 4.7 thou/uL 1.40-6.50 N Hematology (test code = LYMPH#) 1.4 thou/uL 1.20-3.40 N Hematology (test code = MONO#) 0.8 thou/uL 0.11-0.59 H Hematology (test code = EOS#) 0.3 thou/uL 0.0-0.7 N Hematology (test code = BASO#) 0.0 thou/uL 0.0-0.2 N
[2020-04-25 22:02] LABS: Absolute Lymphocytes (CBC) 0.8 K/uL (0.7-4.9); Basophils % 0.3 % (0-1.3); Lymphocytes % 7.7 % (15.3-44.8); MPV 9.5 fL (7.6-11.3); RBC Red Blood Cell Count 3.48 M/uL (4.33-5.43)
[2020-04-25 22:03] LABS: Protime INR 1.23
[2020-04-25 22:24] LABS: ALT/SGPT 27 U/L (12-78); AST/SGOT 44 U/L (15-37); Albumin 2.3 g/dL (3.4-5.0); Alkaline Phosphatase 158 U/L (45-117); BUN Blood Urea Nitrogen 11 mg/dL (7-18); Bicarbonate 24 mmol/L (21-32); Bilirubin Direct 0.4 mg/dL (0-0.2); Glucose Level 129 mg/dL (74-106); Magnesium 1.8 mg/dL (1.8-2.4); NT PRO-BNP 297 pg/mL (<450); Potassium 3.3 mmol/L (3.5-5.1); Protein, Total 7.9 g/dL (6.4-8.2); Sodium Level 138 mmol/L (136-145); Troponin (Emerg Dept Use Only) < 0.02 ng/mL (0.0-0.045)
--- NOTE | 2020-04-25 22:28 | RAD REPORT ---
EXAM DESCRIPTION: RAD - Chest Single View - 04/25/2020 10:21 pm CLINICAL HISTORY: FEVER Chest pain. COMPARISON: Chest Pa And Lat (2 Views) dated 12/04/2019; Chest Pa And Lat (2 Views) dated 11/29/2019; C hest Single View dated 04/14/2018; Chest Single View dated 04/13/2018 FINDINGS: Portable technique limits examination quality. The lungs are mildly emphysematous with no focal infiltrate detected. The heart is normal in size. No displaced fractures. IMPRESSION: COPD.
--- NOTE | 2020-04-25 23:44 | ER ---
Nurse's Notes [facility] Name: Cristian Jaramillo Age: 79 yrs Sex: Male : 1940 Arrival Date: 04/25/2020 Time: 21:09 Bed 6 Private MD: Diagnosis: Dyspnea, unspecified;Edema, unspecified Presentation: 04/25 21:00 Chief complaint: Patient states: i have shortness of breath and fever today. mg2 Coronavirus screen: Surgical mask placed on patient. Patient moved to private room, placed in contact and droplet isolation with eye protection until further assessment. Patient denies a cough. Patient reports shortness of breath or difficulty breathing. Patient reports a measured and/or subjective temperature greater than 100.4F. Patient denies travel on a cruise ship or to a country the [facility] currently lists as an affected area. Patient denies contact with known and/or suspected case of COVID-19. Ebola Screen: No symptoms or risks identified at this time. 21:00 Method Of Arrival: Wheelchair mg2 22:01 Initial Sepsis Screen: Does the patient meet any 2 criteria? No. Patient's initial rv sepsis screen is negative. Does the patient have a suspected source of infection? No. Patient's initial sepsis screen is negative. Risk Assessment: Do you want to hurt yourself or someone else? Patient reports no desire to harm self or others. Onset of symptoms was April 25, 2020 at 08:00. 22:01 Acuity: CORI 3 rv Historical: - PMHx: 21:13 Alcoholism; Cirrhosis; COPD; enlarged prostate; mg2 - PSHx: 21:13 Hernia repair; Appendectomy; mg2 - Immunization history:: Flu vaccine is up to date. - Social history:: Smoking status: Patient denies any tobacco usage or history of. Patient/guardian denies using alcohol, street drugs, IV drugs. Screenin:01 Abuse screen: Denies threats or abuse. Denies injuries from another. Nutritional rv screening: No deficits noted. Tuberculosis screening: No symptoms or risk factors identified. Fall Risk None identified. Assessment: 22:01 General: Appears comfortable, Behavior is calm, cooperative. Pain: Denies pain. Neuro: rv Level of Consciousness is awake, alert, obeys commands, Oriented to person, place, time, situation. Cardiovascular: Patient's skin is warm and dry. Rhythm is sinus rhythm. Respiratory: Airway is patent Respiratory effort is even, unlabored, Respiratory pattern is regular, symmetrical, Breath sounds are clear bilaterally. Derm: Skin is intact. 22:31 Reassessment: Patient and/or family updated on plan of care and expected duration. Pain rv level reassessed. Patient is alert, oriented x 3, equal unlabored respirations, skin warm/dry/pink. Patient denies pain at this time. Patient states feeling better. Patient states symptoms have improved. Vital Signs: 21:00 Pulse 69; Resp 20; Temp 100.2; Pulse Ox 100% on R/A; Weight 74.84 kg; Height 5 ft. 3 mg2 in. (160.02 cm); 22:30 BP 153 / 58; Pulse 63; Resp 19; Temp 99.5(O); Pulse Ox 100% on R/A; rv 23:53 BP 176 / 77; Pulse 75; Resp 16; Temp 99.3; Pulse Ox 99% on R/A; rv 21:00 Body Mass Index 29.23 (74.84 kg, 160.02 cm) mg2 ED Course: 21:09 Patient arrived in ED. fc 21:13 Arm band placed on. mg2 21:23 Cade Balderas MD is Attending Physician. tw4 21:35 Inserted saline lock: 18 gauge in left antecubital area, using aseptic technique. Blood rv collected. 21:35 Initial lab(s) drawn, by md, sent to lab. rv 21:42 Adithya Cheung, RN is Primary Nurse. rv 22:02 Triage completed. rv 22:02 Patient has correct armband on for positive identification. Bed in low position. Call rv light in reach. Side rails up X 1. nuclear monitoring technician on. Pulse ox on. NIBP on. Door closed. Noise minimized. Pillow given. 22:21 XRAY Chest (1 view) In Process Unspecified. EDMS 23:54 No provider procedures requiring assistance completed. IV discontinued, intact, rv bleeding controlled, No redness/swelling at site. Pressure dressing applied. Administered Medications: 23:40 Drug: Lasix 40 mg Route: IVP; Site: left antecubital; rv 23:53 Follow up: Response: Medication administered at discharge. rv Outcome: 23:44 Discharge ordered by . tw4 23:54 Discharged to home ambulatory, with family. rv 23:54 Condition: good 23:54 Discharge instructions given to patient, family, Instructed on discharge instructions, follow up and referral plans. medication usage, Demonstrated understanding of instructions, follow-up care, medications. 23:54 Prescriptions given X 2. rv 07 00:13 Patient left the ED. rv Addendum: 05/01/2020 09:15 Addendum: COVID-19 Result: Negative result given to RN to notify pt. Attempted to d m5 contact pt regarding negative COVID-19 swab results. Signatures: Dispatcher [employer] EDMS Marleny Stevens, RN RN dm5 Cammie Simons RN RN fc Cade Balderas MD MD tw4 Jose Angel Cano, RN RN [facility] [place] Adithya Cheung RN RN rv
--- NOTE | 2020-04-25 23:44 | EDPHYS ---
Physician Documentation [facility] Name: Cristian Jaramillo Age: 79 yrs Sex: Male : 1940 Arrival Date: 04/25/2020 Time: 21:09 Bed 6 Private MD: ED Physician Cade Balderas HPI: 04/26 06:29 This 79 yrs old Male presents to ER via Wheelchair with complaints of SOB. tw4 06:29 The patient has shortness of breath at rest. Onset: The symptoms/episode began/occurred tw4 today. Duration: The symptoms are continuous, and are unchanged since they started. The patient's shortness of breath has no apparent modifying factors. Associated signs and symptoms: Pertinent positives: PERIPHERAL EDEMA. Severity of symptoms: At their worst the symptoms were moderate in the emergency department the symptoms are unchanged. The patient has not experienced similar symptoms in the past. Historical: - PMHx: 04/25 21:13 Alcoholism; Cirrhosis; COPD; enlarged prostate; mg2 - PSHx: 21:13 Hernia repair; Appendectomy; mg2 - Immunization history:: Flu vaccine is up to date. - Social history:: Smoking status: Patient denies any tobacco usage or history of. Patient/guardian denies using alcohol, street drugs, IV drugs. ROS: 04/26 06:29 Constitutional: Negative for fever, chills, and weight loss, Eyes: Negative for injury, tw4 pain, redness, and discharge, Cardiovascular: Negative for chest pain, palpitations, and edema, Abdomen/GI: Negative for abdominal pain, nausea, vomiting, diarrhea, and constipation, Back: Negative for injury and pain, MS/Extremity: Negative for injury and deformity, Skin: Negative for injury, rash, and discoloration, Neuro: Negative for headache, weakness, numbness, tingling, and seizure. Respiratory: Positive for dyspnea on exertion, shortness of breath, on exertion. Negative for cough, hemoptysis, orthopnea, pleurisy, sputum production, wheezing. Exam: 06:29 Constitutional: This is a well developed, well nourished patient who is awake, alert, tw4 and in no acute distress. Head/Face: Normocephalic, atraumatic. Chest/axilla: Normal chest wall appearance and motion. Nontender with no deformity. No lesions are appreciated. Cardiovascular: Regular rate and rhythm with a normal S1 and S2. No gallops, murmurs, or rubs. Normal PMI, no JVD. No pulse deficits. Respiratory: Lungs have equal breath sounds bilaterally, clear to auscultation and percussion. No rales, rhonchi or wheezes noted. No increased work of breathing, no retractions or nasal flaring. Back: No spinal tenderness. No costovertebral tenderness. Full range of motion. 06:29 Abdomen/GI: Inspection: distension, Bowel sounds: diminished, Palpation: abdomen is soft and non-tender. 06:29 Musculoskeletal/extremity: Extremities: noted in the right leg and left leg: swelling. Vital Signs: 04/25 21:00 Pulse 69; Resp 20; Temp 100.2; Pulse Ox 100% on R/A; Weight 74.84 kg; Height 5 ft. 3 mg2 in. (160.02 cm); 22:30 BP 153 / 58; Pulse 63; Resp 19; Temp 99.5(O); Pulse Ox 100% on R/A; rv 23:53 BP 176 / 77; Pulse 75; Resp 16; Temp 99.3; Pulse Ox 99% on R/A; rv 21:00 Body Mass Index 29.23 (74.84 kg, 160.02 cm) mg2 MDM: 23:44 Patient medically screened. tw4 04/26 06:29 Differential diagnosis: asthma, Myocardial Infarction pneumonia, Pneumothorax pulmonary tw4 edema, Pulmonary Embolism reactive airway disease, Sepsis. Antibiotic administration: Not indicated. Data reviewed: vital signs, nurses notes. Data reviewed: lab test result(s), cardiac enzymes, CBC, hepatic panel, EKG, radiologic studies, plain films. Data interpreted: Pulse oximetry: Interpretation: normal. Test interpretation: by ED physician or midlevel provider: plain radiologic studies. Counseling: I had a detailed discussion with the patient and/or guardian regarding: the historical points, exam findings, and any diagnostic results supporting the discharge/admit diagnosis. Special discussion: I discussed with the patient/guardian in detail that at this point there is no indication for admission to the hospital. It is understood, however, that if the symptoms persist or worsen the patient needs to return immediately for re-evaluation. 04/25 21:36 Order name: Basic Metabolic Panel; Complete Time: 23:13 tw4 04/25 23:13 Interpretation: Normal except: K 3.3; GLUC 129; CRE 1.48; GFR 46. 04/25 21:36 Order name: CBC with Diff; Complete Time: 23:13 04/25 23:43 Interpretation: Normal except: RBC 3.48; HGB 11.1; HCT 32.0; PLT 134; NIC% 81.0; NEUT A tw4 8.8; LYM% 7.7. 04/25 21:36 Order name: LFT's; Complete Time: 23:13 04/25 23:13 Interpretation: Normal except: AST 44; ALK 158; BILID 0.4; ALB 2.3; GLOB 5.6; A/G 0.4. 04/25 21:36 Order name: Magnesium; Complete Time: 23:13 [facility] 04/25 23:13 Interpretation: Within normal limits: MG 1.8. 04/25 21:36 Order name: NT PRO-BNP; Complete Time: 23:13 [facility] 04/25 23:13 Interpretation: Normal except: NT PRO-BNP 297. 04/25 21:36 Order name: PT-INR; Complete Time: 23:13 [facility] 04/25 23:13 Interpretation: Normal except: PT 14.5. 04/25 21:36 Order name: Troponin (emerg Dept Use Only); Complete Time: 23:13 [facility] 04/25 23:13 Interpretation: Within normal limits: TROPED < 0.02. 04/25 21:36 Order name: XRAY Chest (1 view); Complete Time: 23:13 04/25 21:36 Order name: EKG; Complete Time: 21:37 tw 04/25 21:43 Order name: COVID-19 rv 04/25 21:43 Order name: Flu; Complete Time: 23:13 rv 04/25 23:14 Interpretation: Within normal limits. 04/25 21:43 Order name: Strep; Complete Time: 23:13 rv 04/25 23:14 Interpretation: Within normal limits. 04/25 22:37 Order name: Throat Culture [facility] 04/25 21:36 Order name: Cardiac monitoring; Complete Time: 22:00 [facility] 04/25 21:36 Order name: EKG - Nurse/Tech; Complete Time: 22:00 tw4 04/25 21:36 Order name: IV Saline Lock; Complete Time: 22:00 tw4 04/25 21:36 Order name: Labs collected and sent; Complete Time: 22:00 tw4 04/25 21:36 Order name: O2 Per Protocol; Complete Time: 22:00 tw4 04/25 21:36 Order name: O2 Sat Monitoring; Complete Time: 22:00 tw4 04/25 21:43 Order name: Document PUI#; Complete Time: 22:00 rv 04/25 21:43 Order name: Droplet/Contact Precautions; Complete Time: 22:00 rv 04/25 21:43 Order name: Notify [facility] Dept [phone]/ ; Complete Time: 22:00 rv EC:32 Rate is 63 beats/min. Rhythm is regular. QRS [place] is Normal. LA interval is normal. QRS tw4 interval is normal. QT interval is normal. No Q waves. T waves are Normal. No ST changes noted. Clinical impression: Normal ECG. Interpreted by me. Reviewed by me. Administered Medications: 04/25 23:40 Drug: Lasix 40 mg Route: IVP; Site: left antecubital; rv 23:53 Follow up: Response: Medication administered at discharge. rv Disposition: 04/25/20 23:44 Discharged to Home. Impression: Dyspnea, unspecified, Edema, unspecified. - Condition is Fair. - Discharge Instructions: Shortness of Breath, Edema, [id number]. - Prescriptions for Medrol (Robin) 4 mg Oral Tablets, Dose Pack - take 1 tablet by ORAL route as directed - follow package instructions; 1 packet. Albuterol Sulfate 90 mcg/actuation - inhale 1-2 puff by INHALATION route every 4-6 hours; 1 Inhaler. - Medication Reconciliation Form, Thank You Letter, Antibiotic Education, Prescription Opioid Use form. - Follow up: Private Physician; When: Upon discharge from the Emergency Department; Reason: Recheck today's complaints, Continuance of care, Re-evaluation by your physician. - Problem is new. - Symptoms are unchanged. Signatures: Dispatcher [employer] Cade Ball MD MD tw4 Jose Angel Cano RN RN mg2 Jonatan, Adithya, RN RN rv Corrections: (The following items were deleted from the chart) 23:43 23:13 Normal except: RBC 3.48; HGB 11.1; HCT 32.0; PLT 134. tw4 tw4 04/26 00:13 07 23:44 04/25/2020 23:44 Discharged to Home. Impression: Dyspnea, unspecified; rv Edema, unspecified. Condition is Fair. Forms are Medication Reconciliation Form, Thank You Letter, Antibiotic Education, Prescription Opioid Use. Follow up: Private Physician; When: Upon discharge from the Emergency Department; Reason: Recheck today's complaints, Continuance of care, Re-evaluation by your physician. Problem is new. Symptoms are unchanged. tw4
[2020-04-25] MEDS ORDERED: FUROSEMIDE 40 MG/4 ML VIAL ONE (23:45)
[2020-04-26 00:55] VITALS: BP 176/77; TEMP 99.3; O2SAT 99
--- NOTE | 2020-04-27 08:59 | EKG ---
Test Date: 2020-04-25 Test Time: 21:26:14 Production Estimator: RV MEASUREMENT RESULTS: Intervals: Rate: 63 NM: 178 QRSD: 72 QT: 412 QTc: 421 Mcguffey: P: 14 NM: 178 QRS: 43 T: 11 INTERPRETIVE STATEMENTS: Normal sinus rhythm Normal ECG Compared to ECG 04/13/2018 21:13:48 No significant changes Electronically Signed On 04-27-20 08:55:40 CDT by Irvin Mo
== END 2020-04-26 00:13 | disposition home or self-care (01) ==
LOC: SUPCPDRO 21:08 → ER 21:08
DX: R60.9 Edema, unspecified (principal); Z20.828 Contact with and (suspected) exposure to other viral communicable diseases; F10.20 Alcohol dependence, uncomplicated
CPT/HCPCS: 93005; 87070; 85025; 80048; 36415; 83735; 85610; 80076; 87081; 84484; 83880; 87804 ×2; 71045; 96374; 99284; U0001; J1940